=== PATIENT | female | born 1940 | race Caucasian/White ===

== ENCOUNTER → 2016-09-09 | Outpatient (CLI) | payer OTHER ==
[~2016-09-09] MED LIST: ASPEC325 PO; ATOR-24 PO; CALC625T35 PO; CPR500 PO; LOSA1TAB PO; METO50TA7 PO; MULT-506 PO
[2016-09-09 13:38] LABS: BASO % 0.6 %; BASO ABS # 0.04 K/uL (0-0.2); COMPLETE YES; EOS % 3.2 %; HEMATOCRIT 42.2 % (37-47); IG% 0.2 %; LYMPH % 30.7 %; LYMPH ABS # 2.01 K/uL (1.2-3.4); MEAN CELL VOLUME 90.2 fL (80-100); MEAN CORPUSCULAR HEMOGLOBIN 29.1 pg (25-34); MEAN CORPUSCULAR HGB CONC 32.2 g/dl (32-36); MEAN PLATELET VOLUME 12.4 fL (7.4-10.4); MONO % 9.6 %; NEUT % 55.7 %; PLATELET COUNT 222 K/uL (130-400); RED BLOOD COUNT 4.68 M/uL (4.2-5.4); WHITE BLOOD COUNT 6.55 K/uL (4.8-10.8)
[2016-09-09 15:04] LABS: ALT/SGPT 39 U/L (12-78); AST/SGOT 21 U/L (15-37); BLOOD UREA NITROGEN 17 mg/dl (7-18); BUN/CREATININE RATIO 19.1 (10-20); CALCIUM 9.5 mg/dl (8.5-10.1); CARBON DIOXIDE 29 mmol/L (21-32); CHLORIDE 107 mmol/L (98-107); CREATININE 0.87 mg/dl (0.60-1.20); GLUCOSE 104 mg/dl (70-99); POTASSIUM 4.5 mmol/L (3.5-5.1); SODIUM 144 mmol/L (136-145)
[2016-09-09 15:06] LABS: ALB/GLOB RATIO 1.3 (0.9-2); ALKALINE PHOSPHATASE 50 U/L (45-117); CHOLESTEROL 204 mg/dl (0-200); CHOLESTEROL/HDL RATIO 3.7; HDL CHOLESTEROL 55 mg/dl; TRIGLYCERIDES 197 mg/dl (0-150); VERY LOW DENSITY LIPOPROT CALC 39 mg/dl
== END | disposition home or self-care (01) ==
LOC: C.LABSPEC 12:48
PROVIDERS: ATTEND Internal Medicine
DX: E78.5 Hyperlipidemia, unspecified (principal); I25.10 Atherosclerotic heart disease of native coronary artery without angina pectoris; M35.3 Polymyalgia rheumatica

== ENCOUNTER → 2016-10-01 | Day surgery (SDC) | payer OTHER ==
[~2016-10-01] MED LIST changes: +PERFLUTREN LIPID MICROSPHERE (DEFINITY) IV ONE
--- NOTE | 2016-10-01 10:57 | EXERCISE STRESS ECHO ---
*NOTICE TO RECEIVING [employer] This information is strictly Confidential and protected under [place] law. [place] law prohibits you from making any further disclosure of this information unless further disclosure is expressly permitted by the written consent of the person to whom it pertains or is authorized by law. A general authorization for the release of medical or other information is not sufficient for this purpose. Hospital accepts no responsibility if the information is made available to any other person, INCLUDING THE PATIENT. Interpretation Summary * Name: LILIA CORNEJO Study Date: 10/01/2016 08:47 AM BP: 146/78 mmHg * Patient Location: [facility] HR: 50 * : 1940 (M/d/yyyy) Gender: Female Height: 61 in * Age: 76 yrs Ethnicity: [place] Weight: 157 lb * Ordering Physician: José Manuel Chambers * Referring Physician: José Manuel Chambers * Performed By: Sujatha Dupree RDCS * * Reason For Study: SOB * BSA: 1.7 m2 * -- Conclusions -- * Stress Echo: * 1. Abnormal stress echo at 89% MPHR, suggesting mid to distal LAD ischemia, and potentially a small area of RCA ischemia. * 2. Abnormal exercise ECG at 89% MPHR. * 3. No arrhythmia. * 4. Appropriate blood pressure response to exercise. * 5. Exercise terminated due to dyspnea. No chest pain. * 6. Poor exercise tolerance. * 7. Technically difficult study, enhanced with IV Definity. * 8. Dr. Gottlieb was personally contacted via telephone. He asked that we proceed with cardiac evaluation and cardiac catheterization. * Echo: * 1. Normal left ventricular size and systolic function. EF 60-65 %. No regional wall motion abnormalities. No left ventricular hypertrophy. Type 2 diastolic dysfunction. * 2. Mild mitral regurgitation. * 3. Normal estimated right ventricular systolic pressure; 22 mmHg. Procedure Details * ECHOEX, CPT #33906 * A contrast injection of Definity was performed to improve assessment of LV function. * Contrast was injected into an intravenous site in the right arm. * One vial of Definity ultrasound contrast was diluted in normal saline to a total volume of 10 ml. A total of '4' ml of solution was administered during imaging. * Lot # [id number] of Definity utilized for procedure. * Expiration date NOV 08. * The attending nurse who injected the contrast agent was NEPTALI CALDERON RN. Left Ventricle * The left ventricle is normal in size. * There is normal left ventricular wall thickness. * Ejection Fraction = 60-65%. * Following exercise, the mid to distal anterior does not appear to augment appropriately, and appears hypokinetic. The inferior base appears hypokinetic following exercise. * The left ventricular wall motion is normal at rest. * The left ventricular ejection fraction increases normally with stress. The left ventricular end-systolic cavity size reduces post-stress (normal response). The left ventricular wall motion with stress is normal. Right Ventricle * The right ventricle is normal in size and function. * The right ventricular systolic function is normal as assessed by tricuspid annular plane systolic excursion (TAPSE) (normal >1.5 cm). Atria * The left atrial size is normal. * Right atrial size is normal. * There is no evidence of atrial septal defect, but resolution does not allow assessment for a patent foramen ovale. Mitral Valve * The mitral valve leaflets appear normal. There is no evidence of stenosis, fluttering, or prolapse. * There is mild mitral regurgitation. Tricuspid Valve * The tricuspid valve is not well visualized, but is grossly normal. * There is no tricuspid stenosis. * There is trace tricuspid regurgitation. Aortic Valve * The aortic valve is trileaflet. * No hemodynamically significant valvular aortic stenosis. * No aortic regurgitation is present. Pulmonic Valve * The pulmonary valve is inadequately visualized, but the Doppler data is adequate for interpretation. * There is no significant pulmonary regurgitation. Great Vessels * The aortic root is normal size. * Ascending aorta of normal dimension * Normal IVC size and inspiratory collapse. Pericardium * There is no pericardial effusion. Stress Parameters * Sinus bradycardia at 51 bpm. * 0.5 - [address] depression in II, III, aVF that was nearly back to baseline by 9 minutes into recovery. * Rest heart rate was '50' BPM. * Rest blood pressure was '146/78' * Maximum heart rate achieved was 131 bpm. * Maximum heart rate was 89 % of maximum age-predicted heart rate. * Maximum blood pressure was '180/90' * Total exercise time was '4:04' * Maximum exercise MET level achieved was '5.80' METS * Maximum treadmill speed was '2.50' miles per hour. * Maximum treadmill elevation was '12.00'% grade. * Exercise was terminated due to 'significant dyspnea' * The patient exhibited dyspnea during exercise. Left Ventricular Diastolic Function * Diastolic dysfunction, Grade II (pseudonormalization pattern). MMode 2D Measurements and Calculations IVSd 1.1 cm IVSs 1.5 cm LVIDd 3.7 cm LVIDs 2.5 cm LVPWd 1.0 cm LVPWs 1.3 cm IVS/LVPW 1.1 FS 33.3 % EDV(Teich) 59.7 ml ESV(Teich) 22.2 ml EF(Teich) 62.8 % EDV(cubed) 52.4 ml ESV(cubed) 15.5 ml EF(cubed) 70.3 % % IVS thick 35.0 % % LVPW thick 30.8 % LV mass(C)d 123.4 grams LV mass(C)dI 72.4 grams/m\S\2 LV mass(C)s 111.4 grams LV mass(C)sI 65.3 grams/m\S\2 SV(Teich) 37.5 ml SI(Teich) 22.0 ml/m\S\2 SV(cubed) 36.9 ml SI(cubed) 21.6 ml/m\S\2 Ao root diam 2.8 cm Ao root area 6.3 cm\S\2 asc Aorta Diam 2.8 cm LVAd ap4 28.5 cm\S\2 LVLd ap4 7.7 cm EDV(MOD-sp4) 88.0 ml EDV(sp4-el) 90.3 ml LVAs ap4 15.9 cm\S\2 LVLs ap4 6.5 cm ESV(MOD-sp4) 34.3 ml ESV(sp4-el) 32.8 ml EF(MOD-sp4) 61.0 % EF(sp4-el) 63.7 % LVAd ap2 27.1 cm\S\2 LVLd ap2 7.9 cm EDV(MOD-sp2) 80.7 ml EDV(sp2-el) 79.1 ml LVAs ap2 15.2 cm\S\2 LVLs ap2 6.4 cm ESV(MOD-sp2) 31.9 ml ESV(sp2-el) 30.5 ml EF(MOD-sp2) 60.4 % EF(sp2-el) 61.4 % LVLd %diff 2.7 % EDV(MOD-bp) 84.4 ml LVLs %diff -1.22 % ESV(MOD-bp) 33.3 ml EF(MOD-bp) 60.6 % SV(MOD-sp4) 53.7 ml SI(MOD-sp4) 31.5 ml/m\S\2 SV(MOD-sp2) 48.8 ml SI(MOD-sp2) 28.6 ml/m\S\2 SV(MOD-bp) 51.2 ml SI(MOD-bp) 30.0 ml/m\S\2 SV(sp4-el) 57.5 ml SI(sp4-el) 33.7 ml/m\S\2 SV(sp2-el) 48.6 ml SI(sp2-el) 28.5 ml/m\S\2 Doppler Measurements and Calculations MV E max olga 97.5 cm/sec MV A max olga 70.3 cm/sec MV E/A 1.4 MV dec time 0.20 sec Ao V2 max 133.6 cm/sec Ao max PG 7.1 mmHg Ao max PG (full) 3.1 mmHg LV V1 max PG 4.0 mmHg LV V1 max 99.9 cm/sec TR max olga 220.4 cm/sec RVSP(TR) 22.4 mmHg RAP systole 3.0 mmHg
--- NOTE | 2016-10-01 11:07 | Cardiology Consultation ---
Cardiology Consultation Date of Consultation: Oct 01, 2016. Requesting Physician: Dr. Gottlieb Attending Physician: Dr. Gottlieb Reason for Consultation: abnormal stress echo and dyspnea with exertion Pt evaluation today including: conversation w/ patient, conversation w/ family , physical exam, chart review, lab review, review of studies, review of inpatient medication list, conversation w/ attending History of Present Illness Mrs. Cruz is a very pleasant 76-year-old female with a history significant for CAD status post LAD stent in 2011. She also has hypertension and dyslipidemia. She presented to [facility] on 10/01/2016 for an outpatient exercise stress echo as ordered by her PCP, Dr. Gottlieb. She has had progressively worsening dyspnea with exertion for the past 1-2 months. Climbing hills, climbing stairs, and even performing some of her ADLs have caused dyspnea. She denies any chest discomfort/angina. Her symptoms have progressively worsened over time. She denies shortness of breath at rest. She had symptoms prior to her trip to [place]. In 2011, while in [place], she had a drug-eluting stent placed within her LAD. Her symptoms at that time included chest discomfort described as an elephant on her chest, left arm pain, jaw pain, and dyspnea with exertion. Her symptoms resolved following stent placement. She denies melena, hematochezia, hematuria, palpitations, syncope, near-syncope , orthopnea, edema, or chest pain. Review of systems: As above. Review of systems otherwise unremarkable. Past Medical/Surgical History 1. CAD status post drug-eluting stent within the LAD April 2011. 2. Hypertension 3. Dyslipidemia 4. Polymyalgia rheumatica Family History Father at the age of 53 with myocardial infarction. Mother had CAD. Brother has CAD. Social History Quit smoking many years ago. She is and lives with her . Her is present at the bedside. Allergies Coded Allergies: Erythromycin (Unverified Allergy, Unknown, ., 11/24/13) Oxycodone (Unverified Allergy, Unknown, ., 11/24/13) Penicillins (Unverified Allergy, Unknown, ., 11/24/13) Sulfa Drugs (Unverified Allergy, Unknown, ., 11/24/13) Medications Medications include aspirin 325 mg daily, Lipitor 80 mg daily, metoprolol succinate 50 mg daily, vitamin, fiber. Physical Exam Resting heart rate 69 bpm. Blood pressure 146/86 mmHg. Heart rate on ECG 51 bpm. Gen.: No acute distress. Alert and oriented. HEENT: Anicteric sclera. Neck: No JVD. No bruits. Normal carotid upstrokes bilaterally. Cardiac: PMI was nonpalpable . No ventricular heave. Regular rate and rhythm. Normal S1-S2. No murmurs, rubs, or gallops. Pulmonary: Clear to auscultation bilaterally without wheezes, rales, or rhonchi. Abdomen: Soft, nontender, nondistended, with normoactive bowel sounds. No bruits noted. Extremities: 2+ radial pulses bilaterally. 2+ posterior tibialis pulses bilaterally. No edema or cyanosis. Psychiatric: Affect appears appropriate. Data Laboratory Results: Labs 09/09/2016: WBC 6.55; hemoglobin 13.6; platelets 222; sodium 144; potassium 4.5; BUN 17; creatinine 0.87; AST 21; ALT 39 Stress echo imaging personally reviewed suggesting mid to distal LAD ischemia, and potentially small area of RCA ischemia. Assessment & Plan ASSESSMENT/PLAN: 1. Abnormal stress echo with dyspnea and exertion: Symptoms concerning for ischemic heart disease given her abnormal stress echo imaging and progressively worsening dyspnea with exertion. Dr. Gottlieb was personally contacted. Cardiac catheterization recommended. Risks and benefits were discussed with her and her in detail. They are made aware that CT surgery is not available at this facility. She would like to proceed with cardiac catheterization today if possible. This is being arranged for her. She had recent laboratory data done. Currently, she is asymptomatic without angina. 2. CAD status post LAD PCI: Continue aspirin daily indefinitely. Continue beta-patrick and high-intensity statin therapy. Cardiac catheterization today as noted above. 3. Hypertension: She is not significantly hypertensive, although was mildly hypertensive at rest today. Continue current regimen for now. If she remains hypertensive, can further titrate medications. 4. Disposition: Cardiac catheterization being planned for later today when the cardiac catheterization lab was available. Dr. Aquino and Dr. Gottlieb were made aware of abnormal stress echo findings and plan going forward. Highly complex medical issues.
== END | disposition home or self-care (01) ==
LOC: C.CPL 08:13 → EDSTATUS 08:45 → C.CATH 10:38
PROVIDERS: ATTEND Internal Medicine Cardiovascular Disease
DX: R06.00 Dyspnea, unspecified (principal); I25.10 Atherosclerotic heart disease of native coronary artery without angina pectoris; I10 Essential (primary) hypertension; E78.5 Hyperlipidemia, unspecified; M35.3 Polymyalgia rheumatica; Z82.49 Family history of ischemic heart disease and other diseases of the circulatory system; Z87.891 Personal history of nicotine dependence; Z79.82 Long term (current) use of aspirin; Z79.899 Other long term (current) drug therapy

== ENCOUNTER → 2016-10-03 | Day surgery (SDC) | payer OTHER ==
[~2016-10-03] VITALS: Ht 154.9 cm; Wt 72.0 kg
[~2016-10-03] MED LIST changes: +ACETAMINOPHEN 325 MG TAB PO PRN; +FENTANYL CITRATE INJ 50 MCG/1 ML 2 ML VIAL ONE; +HEPARIN SOD (PORCINE) 1000 UNIT/ML 10 ML VIAL ONE; +MIDAZOLAM HCL 1 MG/ML 2ML VIAL ONE; +NITROGLYCERIN/D5W 100MCG/ML 20ML SYR ONE; +NiCARDipine HCL INJ 2.5 MG/ML 10 ML AMP ONE; +ONDANSETRON INJ 2 MG/ML 2 ML VIAL IV PRN; -PERFLUTREN LIPID MICROSPHERE (DEFINITY) IV ONE; +SODIUM CHLORIDE 0.9% 1000ML 1,000 ML IV SCH; +SODIUM CHLORIDE 0.9% 1000ML 250 ML IV PRN
[2016-10-03 07:11] VITALS: Ht 154.9 cm; Wt 72.0 kg
[2016-10-03 07:12] VITALS: BP 186/78; PULSE 60; TEMP 36.5; O2SAT 95
--- NOTE | 2016-10-03 07:51 | History & Physical Bridge Note ---
H&P Re-Evaluation Bridge Note: I have examined the patient, reviewed the History & Physical and in the interval since the performance of the History & Physical I have noted the following changes of clinical significance: No changes noted
--- NOTE | 2016-10-03 07:52 | Procedure Note ---
Pre-Mod Sedation Assessment General Date of Moderate Sedation: Oct 03, 2016. Vital Signs: Vital Signs Past 12 Hours Date Time Temp Pulse Resp B/P (MAP) Pulse Ox O2 Delivery O2 Flow Rate FiO2 10/03/16 07:12 36.5 60 16 186/78 95 Room Air Review Cardiovascular: regular rate, rhythm, no murmur Abdomen: soft Lungs: lungs clear Pre-Sedation Airway Assessment Oral Cavity: WNL Short Thick Neck: No Hx of Sleep Apnea: No Smoking Status: Never Smoker Procedure Planning Contraindications-for Mod Sed: None Yes Notes The planned sedation has been discussed with the patient and consent obtained. I have identified the patient, determined the appropriateness of sedation and have assessed the patient immediately prior to the procedure. All medicine(s) and interventions are by my order.
--- NOTE | 2016-10-03 08:50 | Procedure Note ---
Post-Mod Sedation Assessment General Date of Moderate Sedation Oct 03, 2016. Vital Signs: Vital Signs Past 12 Hours Date Time Temp Pulse Resp B/P (MAP) Pulse Ox O2 Delivery O2 Flow Rate FiO2 10/03/16 08:30 56 16 137/57 (83) 96 Room Air 10/03/16 08:22 52 15 124/64 (84) 95 Room Air 10/03/16 07:12 36.5 60 16 186/78 95 Room Air Review - Discharge Criteria Vital Signs Stable: Yes Alert/Oriented/Conversant: Yes Returned to Baseline Mental St: Yes Nausea Absent/Minimal: Yes Pain/Discomfort/Absent/Minimal: Yes Normal/Baseline Respirations: Yes Active Bleeding?: No
--- NOTE | 2016-10-03 09:11 | Cardiac Catheterization ---
Procedure Note Procedure Date Oct 03, 2016. Pre-Procedure Diagnosis Positive Stress Test AUC Score 9 Post-Procedure Diagnosis Mild CAD, Normal Intracardiac Pressures Procedure(s) Performed Coronary Angiography, Left Heart Cath Supervisor In Circuit Testing Dr. Hernandes Food And Beverage Attendant(s) Filipe Estimated Blood Loss < 20 ml Medication(s) Fentanyl, Heparin, Nicardipine, Versed, Lidocaine 1% Summary of Findings Coronary angiography: 1. Left main coronary artery: No significant CAD noted angiographically. 2. Left anterior descending: The LAD is a medium caliber vessel that extends to the apex. Proximal LAD stent appears patent. There is a 30% stenosis in the mid LAD just distal to the stent. Large D1, small D2, small D3 vessels without obstructive CAD. 3. Circumflex: Medium caliber circumflex with medium caliber OM1. No angiographic evidence of CAD within the circumflex system. 4. Right coronary artery: The RCA is medium to large in caliber and is the dominant vessel. Large PDA. Small to medium caliber PL. No angiographic evidence of CAD within the RCA system. Left heart catheterization: 1. Left ventriculography was not performed as there was an echo done on 2016. 2. No significant aortic stenosis. 3. Normal LVEDP. LVEDP 10 mmHg. Sedation start: 8:02 a.m. Sedation end: 8:22 a.m. Procedural notes: 1. Coronary angiography was performed via the right radial artery without known complication. Impression: 1. Mild nonobstructive CAD within the mid LAD. 2. Patent proximal LAD stent. 3. No significant aortic stenosis. 4. Normal LVEDP. Plan: 1.Continue to follow with Dr. Aquino in Cardiology. 2. Continue aspirin therapy indefinitely due to prior PCI. Hemodynamics Rest Ao: 151/61 Final Ao: 155/64 LV: 144/6. LVEDP 10 mmHg Recommendations Medical therapy and/or Counseling Specimens None Radiation Exposure (mGy) 670 mGy. Fluoro time 2.5 min Contrast (mls) 30 ml Visipaque Procedural Complication(s) None Disposition Adjunct Sociology Professor Holding/Recovery ACC Data Cardiac Status Clinical evaluation leading to the procedure CAD Presntation: Positive Stress Test Anginal Classification: No symptoms Heart Failure: No Cardiogenic Shock w/in 24Hrs: No Cardiac Arrest w/in 24Hrs: No Imaging studies past 6 months: No Stress studies past 6 months: Yes Standard Exercise Stress Test: Yes - Negative Stress Echocardiogram: Yes - Positive, Risk/Extent of Ischemia (Intermediate) Stress Testing w/SPECT MPI: No Cardiac CTA: No Coronary Anatomy Dominant: Right Left Main (% Stenosis): Normal LAD (% Stenosis): Mid (30%) D1 (% Stenosis): Normal D2 (% Stenosis): Normal D3 (% Stenosis): Normal Circumflex (% Stenosis): Normal OM1 (% Stenosis): Normal RCA (% Stenosis): Normal R PDA (% Stenosis): Normal R PL1 (% Stenosis): Normal Left Ventricular Angiography EF (%): n/a Diagnostic Physician's Name: Keo Hernandes MD Status: Elective Closure Device Percutaneous Entry Location: Radial Closure Device: Radial Band Recommendations: Medical therapy and/or Counseling
--- NOTE | 2016-10-03 10:29 | Discharge Instructions ---
Discharge Instructions Date of Service Oct 03, 2016. Visit Reason for Visit: Cardiac catheterization Discharge Discharge Diagnosis / Problem: 1. Non-obstructive coronary artery disease. 2. Hypertension Discharge Goals Goal(s): Diagnostic testing Activity Recommendations Activity Limitations: per Instructions/Follow-up section Anesthesia . Post Anesthesia Instructions: If you have had General Anesthesia or IV Sedation: * Do not drive today. * Resume driving when surgeon permits. * Do not make important decisions or sign legal documents today. * Call surgeon for: 1. Temperature elevations greater than 101 degrees F. 2. Uncontrollable pain. 3. Excessive bleeding. 4. Persistent nausea and vomiting. 5. Medication intolerance (nausea, vomiting or rash). * For nausea and vomiting use only clear liquids such as: tea, soda, bouillon until nausea subsides, then gradually increase diet as tolerated. * If you have any concerns or questions, call your surgeon's office. If physician is unavailable and it is an emergency, call 911 or go to the nearest emergency room. . Instructions / Follow-Up Instructions / Follow-Up ACTIVITY RECOMMENDATIONS: Excess manipulation of the wrist should be avoided for the next 24-48 hours. * No lifting over 2 pounds (approximately a 1/2 gallon of milk) with the utilized arm for 24 hours. * No strenuous activity such as bowling or tennis for 3 days. * Keep the site of the procedure covered with a bandage for 24 hours. *You may shower the day after the procedure. Do not take a tub bath or submerge the puncture site in water for the next 3 days. *Do not operate any motorized equipment for 3 days. SPECIAL CARE INSTRUCTIONS: The site may be slightly bruised and sore following your procedure. Should any of the following occur, contact the Dr. who performed your procedure. 1. Redness/inflammation, swelling, chills, or fever, or colored drainage at procedure site within 3-7 days after your procedure. 2. Coldness, discoloration, ongoing numbness, severe pain, or swelling. Expect mild tingling of hand and tenderness at the puncture site for up to three days. If this persists beyond three days, or other symptoms develop, notify the Dr. who performed your procedure. BLEEDING: If the procedure site on your wrist begins to bleed, do not panic 1. Place 1 or 2 fingers firmly just slightly above the insertion site to stop the bleeding. You may be able to feel your pulse as you hold pressure. 2. Lift your finger after 5 minutes to see if the bleeding has stopped. 3. Once the bleeding has stopped, gently wipe the wrist area clean with a bandage. * If the bleeding from your wrist does not stop after 10 minutes, or if there is a large amount of bleeding or spurting, call 911 (do not drive yourself to the hospital). SKIN IRRITATION: * You may experience some redness and/or swelling in the area where radiation was administered. If any skin irritation occurs, please contact your family physician. FOLLOW UP VISIT: Keep any scheduled doctor appointments. Diet Recommendations Recommended Home Diet: low cholesterol Procedures Procedures Performed: 1. coronary angiography and left heart catheterization Pending Studies Studies pending at discharge: yes List of pending studies: Have labs drawn in 5-7 days. Order is placed electronically and can be done at any [facility] lab. Medical Emergencies . Who to Call and When: Medical Emergencies: If at any time you feel your situation is an emergency, please call 911 immediately. . Non-Emergent Contact Non-Emergency issues call your: Primary Care Provider (Dr. Gottlieb), Geophysical Drafter (Dr. Aquino) . . "Provider Documentation" section prepared by Keo Art. .
[2016-10-03 10:45] VITALS: BP 147/52; PULSE 63; O2SAT 96
--- NOTE | 2016-10-03 12:34 | Anesthesia Progress Nt - [facility] ---
Anesthesia Post Op Note Date & Time Oct 03, 2016 at 12:34 Vital Signs Pain Intensity: 0 Vital Signs Past 12 Hours Date Time Temp Pulse Resp B/P (MAP) Pulse Ox O2 Delivery O2 Flow Rate FiO2 10/03/16 10:45 63 16 147/52 (83) 96 Room Air 10/03/16 10:30 55 16 129/51 (77) 95 Room Air 10/03/16 10:00 57 16 179/76 (110) 96 Room Air 10/03/16 09:45 59 16 157/76 (103) 96 Room Air 10/03/16 09:30 52 16 142/63 (89) 96 Room Air 10/03/16 09:15 50 16 172/72 (105) 96 Room Air 10/03/16 09:00 52 16 147/67 (93) 96 Room Air 10/03/16 08:45 51 16 140/59 (86) 96 Room Air 10/03/16 08:30 56 16 137/57 (83) 96 Room Air 10/03/16 08:22 52 15 124/64 (84) 95 Room Air 10/03/16 07:12 36.5 60 16 186/78 95 Room Air Notes Mental Status: alert / awake / arousable, participated in evaluation Pt Amnestic to Procedure: Yes Nausea / Vomiting: adequately controlled Pain: adequately controlled Airway Patency, RR, SpO2: stable & adequate BP & HR: stable & adequate Hydration State: stable & adequate Anesthetic Complications: no major complications apparent
== END | disposition home or self-care (01) ==
LOC: C.CATH 06:57
PROVIDERS: ATTEND Internal Medicine Cardiovascular Disease
DX: R06.00 Dyspnea, unspecified (principal); R93.1 Abnormal findings on diagnostic imaging of heart and coronary circulation; I25.10 Atherosclerotic heart disease of native coronary artery without angina pectoris; I10 Essential (primary) hypertension; E78.5 Hyperlipidemia, unspecified; M35.3 Polymyalgia rheumatica; Z79.82 Long term (current) use of aspirin; Z82.49 Family history of ischemic heart disease and other diseases of the circulatory system

== ENCOUNTER → 2016-10-08 | Outpatient (CLI) | payer OTHER ==
[~2016-10-08] MED LIST changes: -ACETAMINOPHEN 325 MG TAB PO PRN; -CPR500 PO; -FENTANYL CITRATE INJ 50 MCG/1 ML 2 ML VIAL ONE; -HEPARIN SOD (PORCINE) 1000 UNIT/ML 10 ML VIAL ONE; -MIDAZOLAM HCL 1 MG/ML 2ML VIAL ONE; -NITROGLYCERIN/D5W 100MCG/ML 20ML SYR ONE; -NiCARDipine HCL INJ 2.5 MG/ML 10 ML AMP ONE; -ONDANSETRON INJ 2 MG/ML 2 ML VIAL IV PRN; -SODIUM CHLORIDE 0.9% 1000ML 1,000 ML IV SCH; -SODIUM CHLORIDE 0.9% 1000ML 250 ML IV PRN
[2016-10-08 12:32] LABS: BLOOD UREA NITROGEN 16 mg/dl (7-18); BUN/CREATININE RATIO 17.5 (10-20); CALCIUM 9.3 mg/dl (8.5-10.1); CARBON DIOXIDE 30 mmol/L (21-32); CHLORIDE 106 mmol/L (98-107); CREATININE 0.89 mg/dl (0.60-1.20); GLUCOSE 89 mg/dl (70-99); POTASSIUM 4.8 mmol/L (3.5-5.1); SODIUM 140 mmol/L (136-145)
== END | disposition home or self-care (01) ==
LOC: C.LAB1850 09:58
PROVIDERS: ATTEND Internal Medicine Cardiovascular Disease
DX: I25.10 Atherosclerotic heart disease of native coronary artery without angina pectoris (principal); I10 Essential (primary) hypertension

== ENCOUNTER → 2016-10-17 | Outpatient (CLI) | payer OTHER ==
--- NOTE | 2016-10-17 09:53 | DIAGNOSTIC IMAGING REPORT ---
CHEST 2 VIEWS ROUTINE CLINICAL HISTORY: 76 years-old Female presenting with DYSPNEA. TECHNIQUE: PA and lateral views of the chest were obtained. COMPARISON: 01/31/2016. FINDINGS: Atherosclerosis of aortic arch. Cardiac silhouette normal. Calcified granuloma noted at the left lung base. Lungs and pleural spaces otherwise clear. Osseous structures and upper abdomen normal. IMPRESSION: 1. No acute cardiopulmonary disease. Electronically signed by: Darius Vila M.D. 10/17/2016 9:52 AM Dictated Date/Time: 10/17/2016 9:50 AM
--- NOTE | 2016-10-17 09:55 | DIAGNOSTIC IMAGING REPORT ---
LEFT HIP UNILATERAL 2 VIEWS CLINICAL HISTORY: 76 years-old Female presenting with pain since February in the left hip, "pulled" left groin. TECHNIQUE: Frontal and frog-leg lateral views of the left hip were obtained. COMPARISON: Plain radiographs of the abdomen from 2009. FINDINGS: Left hip joint congruent. No acute fracture or subluxation. Osteophytosis noted. No significant joint space loss or radiographic evidence of subchondral sclerosis. Multiple phleboliths noted in the pelvis. IMPRESSION: No acute osseous injury. Mild degenerative changes of the left hip joint. Electronically signed by: Darius Vila M.D. 10/17/2016 9:54 AM Dictated Date/Time: 10/17/2016 9:52 AM
== END | disposition home or self-care (01) ==
LOC: C.RAD 09:20
PROVIDERS: ATTEND Internal Medicine
DX: R06.00 Dyspnea, unspecified (principal); M25.552 Pain in left hip; R10.30 Lower abdominal pain, unspecified

== ENCOUNTER → 2016-10-17 | Outpatient (CLI) | payer OTHER ==
--- NOTE | 2016-10-17 13:25 | MAMMOGRAPHY REPORT ---
BILATERAL DIGITAL SCREENING MAMMOGRAM WITH CAD: 10/17/2016 CLINICAL HISTORY: Routine screening. Patient has no complaints. TECHNIQUE: Bilateral CC and MLO views were obtained. Current study was also evaluated with a Compute r Aided Detection (CAD) system. COMPARISON: Comparison is made to exams dated: 10/16/2015 mammogram, 10/13/2014 mammogram, 10/12/2013 m ammogram, 10/09/2012 mammogram, 09/30/2011 mammogram, and 09/27/2010 mammogram - [facility]. BREAST COMPOSITION: There are scattered areas of fibroglandular density in both breasts. FINDINGS: There are a few benign-appearing round and punctate calcifications in the left breast. No suspicious mass, architectural distortion or cluster of suspicious microcalcifications is seen. IMPRESSION: ACR BI-RADS CATEGORY 1: NEGATIVE There is no mammographic evidence of malignancy. A 1 year screening mammogram is recommended. The pa tient will receive written notification of the results. Approximately 10% of breast cancers are not detected with mammography. A negative mammographic report should not delay biopsy if a clinically suggestive mass is present. Mariam Messer M.D. ay/:10/17/2016 09:35:41 Hospital Cna: Isela KAUR(R)(M), [facility] letter sent: Normal 1/2 BI-RADS Code: ACR BI-RADS Category 1: Negative
== END | disposition home or self-care (01) ==
LOC: C.MAMM 08:44
PROVIDERS: ATTEND Internal Medicine
DX: Z12.31 Encounter for screening mammogram for malignant neoplasm of breast (principal); R06.00 Dyspnea, unspecified; M25.552 Pain in left hip; R10.30 Lower abdominal pain, unspecified

== ENCOUNTER → 2016-10-29 | Outpatient (CLI) | payer OTHER ==
--- NOTE | 2016-11-04 09:52 | PULMONARY FUNCTION TEST ---
CLINICAL DATA: A 76-year-old female with a height of 61 inches and a weight of [address] Gottlieb for evaluation of dyspnea. Spirometry pre- and post-bronchodilator, lung volumes, and diffusion capacity were performed. FINDINGS: Prebronchodilator spirometry demonstrates mild obstructive small airways disease. FVC was 122% of predicted. FEV1 was 102% of predicted. [id number] was 53% of predicted. FEV1/FVC ratio was 79% of predicted. There was improvement in [id number] after inhaled bronchodilator. FVC remained stable. FEV1 improved by 75%, and VCI10-93 improved 37% to 72% of predicted after bronchodilator. Lung volumes showed a mild reduction in residual volume. Diffusion capacity was minimally reduced at 77% of predicted. IMPRESSION: Mild obstructive small airways disease with improvement in [id number] after inhaled bronchodilator with a mild reduction in residual volume and mild reduction in diffusion capacity. MTDD
== END | disposition home or self-care (01) ==
LOC: C.RC 11:20
PROVIDERS: ATTEND Internal Medicine
DX: R06.00 Dyspnea, unspecified (principal)

== ENCOUNTER 2017-02-14 12:41 | Emergency (ER) | payer OTHER ==
[~2017-02-14] VITALS: Ht 154.9 cm; Wt 73.6 kg
[2017-02-14 12:58] VITALS: TEMP 36.5; Ht 154.9 cm; Wt 73.6 kg
[2017-02-14] MEDS ORDERED: DIAZEPAM INJ 5 MG/ML 2 ML CARP IV STA (13:03)
[2017-02-14] MEDS ORDERED: METOCLOPRAMIDE HCL INJ 5 MG/ML 2 ML VIAL IV STA (13:03)
[2017-02-14] MEDS ORDERED: GLUCAGON INJ 1 MG in SYRINGE 0 ML IV STA (13:03)
[2017-02-14] MEDS ORDERED: NITROGLYCERIN OINT 2% 1GM PACKET EXT STA (13:03)
[2017-02-14 13:05] VITALS: O2SAT 96
[2017-02-14] MEDS ORDERED: NITROGLYCERIN OINT 2% 1GM PACKET ONE (13:14)
--- NOTE | 2017-02-14 13:15 | EMERGENCY ROOM VISIT NOTE ---
History Report prepared by [place]: Abraham Gillespie Under the Supervision of: Dr. Roberto Hood M.D. First contact with patient: 13:03 Chief Complaint: FOOD BOLUS Stated Complaint: TURKEY STUCK IN THROAT Nursing Triage Summary: Pt states she was eating turkey an hour ago and it's stuck in her throat. Can't swallow water because it comes right back up. History of Present Illness The patient is a 76 year old female who presents to the Emergency Room with complaints of a constant food bolus that began prior to arrival. The patient states she has had a food bolus before, but it has never been this bad. She reports she ate a piece of turkey this morning. The patient notes she has never had to have an endoscopy to remove the bolus. The patient states she has a history of an NH and takes Metoprolol and an aspirin daily. She denies any other complaint. Source of History: patient Onset: prior to arrival Position: throat Quality: other (food bolus) Timing: constant Note: Denies any other complaint. Review of Systems See HPI for pertinent positives & negatives. A total of 10 systems reviewed and were otherwise negative. Past Medical & Surgical Medical Problems: (1) Dyslipidemia (2) HTN (hypertension) (3) Myocardial infarction (4) Polymyalgia rheumatica Family History Heart disease Hypertension Social History Smoking Status: Former Smoker Marital Status: Housing Status: lives with significant other Current/Historical Medications Scheduled Aspirin Enteric Coated (Ecotrin Or Generic *), 325 MG PO DAILY Atorvastatin (Lipitor), 80 MG PO DAILY Calcium Polycarbophil (Fiber), 1 TAB PO DAILY Losartan Potassium (Cozaar), 1 TAB PO DAILY Metoprolol Succ (Toprol Xl) (Toprol-Xl), 50 MG PO DAILY Multivitamin (Multivitamin), 1 TAB PO DAILY Allergies Coded Allergies: Erythromycin (Verified Allergy, Unknown, ., 10/03/16) Oxycodone (Verified Allergy, Unknown, ., 10/03/16) Penicillins (Verified Allergy, Unknown, ., 10/03/16) Sulfa Antibiotics (Verified Allergy, Unknown, ., 10/03/16) Physical Exam Vital Signs Date Time Temp Pulse Resp B/P (MAP) Pulse Ox O2 Delivery O2 Flow Rate FiO2 02/14/17 14:00 61 20 150/80 97 02/14/17 13:48 64 20 134/77 97 Room Air 02/14/17 13:05 96 Room Air 02/14/17 13:02 90 Room Air 90 02/14/17 12:58 36.5 80 20 167/100 90 Room Air Physical Exam GENERAL: Patient is a healthy-appearing well-nourished 76 year old female. Actively spitting saliva into a bag. Appears uncomfortable. HEAD: Normocephalic atraumatic EYES: Ocular movements intact pupils equal and react to light OROPHARYNX mucous membranes are moist no exudates present no erythema or edema present NECK: Supple no nuchal rigidity CHEST: Good equal expansion LUNGS: Clear and equal to auscultation CARDIAC: Normal S1 and S2 ABDOMEN: Soft nontender no guarding BACK: No CVA tenderness EXTREMITIES: No pain upon palpation normal muscle strength in all groups no clubbing cyanosis or edema NEURO: Patient is following commands and answering questions appropriately. Alert and oriented x3 Cranial Nerves 2-12 grossly intact Medical Decision & Procedures ER Provider Diagnostic Interpretation: X-ray results as stated below per interpretation by me and the radiologist: CHEST ONE VIEW PORTABLE CLINICAL HISTORY: CHEST PAIN dyspnea COMPARISON STUDY: 10/17/2016 FINDINGS: The bones soft tissues and hemidiaphragms are normal. The cardiomediastinal silhouette is normal. The lungs are clear. The pulmonary vasculature is normal. IMPRESSION: Negative chest. The above report was generated using voice recognition software. It may contain grammatical, syntax or spelling errors. Electronically signed by: Jose Ramon Barba M.D. 02/14/2017 1:36 PM Dictated Date/Time: 02/14/2017 1:35 PM Laboratory Results 02/14/17 13:05 Red Blood Count 4.48, Mean Corpuscular Volume 90.8, Mean Corpuscular Hemoglobin 29.9, Mean Corpuscular Hemoglobin Concent 32.9, Mean Platelet Volume 11.7, Neutrophils (%) (Auto) 59.0, Lymphocytes (%) (Auto) 30.5, Monocytes (%) (Auto) 7.8, Eosinophils (%) (Auto) 1.9, Basophils (%) (Auto) 0.6, Neutrophils # (Auto) 5.46, Lymphocytes # (Auto) 2.83, Monocytes # (Auto) 0.72, Eosinophils # (Auto) 0.18, Basophils # (Auto) 0.06 02/14/17 13:05 Test 02/14/17 13:05 White Blood Count 9.27 K/uL (4.8-10.8) Red Blood Count 4.48 M/uL (4.2-5.4) Hemoglobin 13.4 g/dL (12.0-16.0) Hematocrit 40.7 % (37-47) Mean Corpuscular Volume 90.8 fL (80-100) Mean Corpuscular Hemoglobin 29.9 pg (25-34) Mean Corpuscular Hemoglobin Concent 32.9 g/dl (32-36) Platelet Count 248 K/uL (130-400) Mean Platelet Volume 11.7 fL (7.4-10.4) Neutrophils (%) (Auto) 59.0 % Lymphocytes (%) (Auto) 30.5 % Monocytes (%) (Auto) 7.8 % Eosinophils (%) (Auto) 1.9 % Basophils (%) (Auto) 0.6 % Neutrophils # (Auto) 5.46 K/uL (1.4-6.5) Lymphocytes # (Auto) 2.83 K/uL (1.2-3.4) Monocytes # (Auto) 0.72 K/uL (0.11-0.59) Eosinophils # (Auto) 0.18 K/uL (0-0.5) Basophils # (Auto) 0.06 K/uL (0-0.2) RDW Standard Deviation 43.2 fL (36.4-46.3) RDW Coefficient of Variation 13.2 % (11.5-14.5) Immature Granulocyte % (Auto) 0.2 % Immature Granulocyte # (Auto) 0.02 K/uL (0.00-0.02) Anion Gap 6.0 mmol/L (3-11) Est Creatinine Clear Calc Drug Dose 42.3 ml/min Estimated GFR () 59.2 Estimated GFR (Non- 51.1 BUN/Creatinine Ratio 12.3 (10-20) Calcium Level 9.3 mg/dl (8.5-10.1) Total Bilirubin 0.3 mg/dl (0.2-1) Direct Bilirubin < 0.1 mg/dl (0-0.2) Aspartate Amino Transf (AST/SGOT) 33 U/L (15-37) Alanine Aminotransferase (ALT/SGPT) 37 U/L (12-78) Alkaline Phosphatase 58 U/L (45-117) Total Protein 7.8 gm/dl (6.4-8.2) Albumin 4.3 gm/dl (3.4-5.0) Lipase 156 U/L (73-393) Labs reviewed by ED physician. Medications Administered Medications (Trade) Dose Ordered Sig/Rafi Route Start Time Stop Time Status Last Admin Dose Admin Metoclopramide HCl (Reglan Inj) 10 mg NOW STAT IV 02/14/17 13:03 02/14/17 13:05 DC 02/14/17 13:19 10 MG Nitroglycerin (Nitroglycerin 2% Oint) 1 inch NOW STAT EXT 02/14/17 13:03 02/14/17 13:05 DC 02/14/17 13:18 1 INCH Diazepam (Valium Inj) 5 mg NOW STAT IV 02/14/17 13:03 02/14/17 13:05 DC 02/14/17 13:19 5 MG ED Course 1303: Ordered Diazepam 5mg IV, Nitroglycerin 1 inch EXT, Metoclopramide HCl 10mg IV, Glucagon 1mg/Syringe 1 ml @ 0 mls/min IV 1312: Past medical records reviewed. The patient was evaluated in room B12A. A complete history and physical examination was performed. 1314: I discussed the patient's case with Karoline Sarah . He will evaluate the patient for further care. 1341: Dr. Hdz will scope the patient as an outpatient because she is able to keep water down. 1348: Upon reexamination the patient is feeling better and able to keep water down. I discussed results and treatment plan with the patient. She verbalizes agreement and understanding. The patient is ready for discharge. Medical Decision The patient is a 76 year old female who presents to the ED with complaints of a food bolus. Differential diagnosis includes food impaction. This is a 76-year-old female who presents emergency department complaining of not being able swallow her own saliva after eating turkey. An IV was established, the patient was given glucagon, Reglan, Nitropaste, Valium. Repeat examination revealed much improvement the patient's symptoms. I did discuss the case with gastroenterology who actually came in independently evaluated the patient. The patient had much improvement in her symptoms and we both feel that the patient can be discharged home for follow-up. Patient and family were in agreement with treatment plan. Medication Reconcilliation Current Medication List: was personally reviewed by me Blood Pressure Screening Patient's blood pressure: Elevated blood pressure Blood pressure disposition: Referred to PCP Consults Time Called: 1312 Consulting Physician: Karoline Sarah Returned Call: 1314 I discussed the patient's case with Karoline Sarah. He will evaluate the patient for further care. 1341: Dr. Hdz will scope the patient as an outpatient because she is able to keep water down. Impression Primary Impression: Food impaction of esophagus Scribe Attestation The scribe's documentation has been prepared under my direction and personally reviewed by me in its entirety. I confirm that the note above accurately reflects all work, treatment, procedures, and medical decision making performed by me. Departure Information Dispostion Home / Self-Care Referrals José Manuel Chambers M.D. (PCP) Forms HOME CARE DOCUMENTATION FORM, IMPORTANT VISIT INFORMATION, WORK / SCHOOL INSTRUCTIONS Patient Instructions ED Foreign Body Esophageal [facility], [facility], [facility] Additional Instructions Clear liquid diet next 48 hours Follow up with Dr Hdz's office You were found to have an elevated blood pressure today (>120 sytolic or >90 diastolic). Per medicare guidelines, you need to follow up with this blood pressure screening with your Primary Care Physician (PCP). For a new PCP call [phone]. You received narcotic or benzodiazepene medication while in the emergency room today. This is an addictive medication that may cause drowziness as well as constipation. Do not drive, operate heavy machinery, or drink alcohol under the influence of this medication. You have been examined and treated today on an emergency basis only. This is not a substitute for, or an effort to provide, complete comprehensive medical care. It is impossible to recognize and treat all injuries or illnesses in a single emergency department visit. It is therefore important that you follow up closely with Dr Shar Green. Call as soon as possible for an appointment. Thank you for your time and consideration. I look forward to speaking with you again soon. Please don't hesitate to call us if you have any questions. Problem Qualifiers Primary Impression: Food impaction of esophagus Encounter type: initial encounter Qualified Codes: T18.128A - Food in esophagus causing other injury, initial encounter
[2017-02-14 13:37] LABS: BASO % 0.6 %; BASO ABS # 0.06 K/uL (0-0.2); COMPLETE YES; EOS % 1.9 %; HEMATOCRIT 40.7 % (37-47); IG% 0.2 %; LYMPH % 30.5 %; LYMPH ABS # 2.83 K/uL (1.2-3.4); MEAN CELL VOLUME 90.8 fL (80-100); MEAN CORPUSCULAR HEMOGLOBIN 29.9 pg (25-34); MEAN CORPUSCULAR HGB CONC 32.9 g/dl (32-36); MEAN PLATELET VOLUME 11.7 fL (7.4-10.4); MONO % 7.8 %; PLATELET COUNT 248 K/uL (130-400); RED BLOOD COUNT 4.48 M/uL (4.2-5.4); WHITE BLOOD COUNT 9.27 K/uL (4.8-10.8)
--- NOTE | 2017-02-14 13:37 | DIAGNOSTIC IMAGING REPORT ---
CHEST ONE VIEW PORTABLE CLINICAL HISTORY: CHEST PAIN dyspnea COMPARISON STUDY: 10/17/2016 FINDINGS: The bones soft tissues and hemidiaphragms are normal. The cardiomediastinal silhouette is normal. The lungs are clear. The pulmonary vasculature is normal. IMPRESSION: Negative chest. The above report was generated using voice recognition software. It may contain grammatical, syntax or spelling errors. Electronically signed by: Jose Ramon aBrba M.D. 02/14/2017 1:36 PM Dictated Date/Time: 02/14/2017 1:35 PM
[2017-02-14 13:46] LABS: ALT/SGPT 37 U/L (12-78); AST/SGOT 33 U/L (15-37); BLOOD UREA NITROGEN 13 mg/dl (7-18); BUN/CREATININE RATIO 12.3 (10-20); CALCIUM 9.3 mg/dl (8.5-10.1); CARBON DIOXIDE 27 mmol/L (21-32); CHLORIDE 105 mmol/L (98-107); CREATININE 1.07 mg/dl (0.60-1.20); GLUCOSE 113 mg/dl (70-99); POTASSIUM 4.2 mmol/L (3.5-5.1); SODIUM 138 mmol/L (136-145)
[2017-02-14 13:48] LABS: ALKALINE PHOSPHATASE 58 U/L (45-117)
[2017-02-14 14:00] VITALS: BP 150/80; PULSE 61; O2SAT 97
[2017-02-14] MEDS ORDERED: GLUCAGON FOR INJ 1 MG VIAL IV ONE (14:45)
== END 2017-02-14 14:01 | disposition home or self-care (01) ==
LOC: C.EDB 12:42
DX: T18.128A Food in esophagus causing other injury, initial encounter (principal); E78.5 Hyperlipidemia, unspecified; I10 Essential (primary) hypertension; M35.3 Polymyalgia rheumatica; I25.2 Old myocardial infarction; Z79.82 Long term (current) use of aspirin; Z79.899 Other long term (current) drug therapy; Z87.891 Personal history of nicotine dependence; X58.XXXA Exposure to other specified factors, initial encounter

== ENCOUNTER → 2017-03-14 | Outpatient (CLI) | payer OTHER ==
[2017-03-14 12:47] LABS: ALT/SGPT 36 U/L (12-78); BLOOD UREA NITROGEN 12 mg/dl (7-18); BUN/CREATININE RATIO 14.4 (10-20); CARBON DIOXIDE 28 mmol/L (21-32); CHLORIDE 104 mmol/L (98-107); CHOLESTEROL 194 mg/dl (0-200); CREATININE 0.82 mg/dl (0.60-1.20); GLUCOSE 106 mg/dl (70-99); POTASSIUM 4.3 mmol/L (3.5-5.1); SODIUM 138 mmol/L (136-145); TRIGLYCERIDES 152 mg/dl (0-150); VERY LOW DENSITY LIPOPROT CALC 30 mg/dl
[2017-03-14 12:50] LABS: ALB/GLOB RATIO 1.3 (0.9-2); ALKALINE PHOSPHATASE 49 U/L (45-117); AST/SGOT 23 U/L (15-37); CHOLESTEROL/HDL RATIO 3.5; HDL CHOLESTEROL 56 mg/dl
== END | disposition home or self-care (01) ==
LOC: C.LABSPEC 12:24
PROVIDERS: ATTEND Internal Medicine
DX: Z00.00 Encounter for general adult medical examination without abnormal findings (principal); E78.5 Hyperlipidemia, unspecified; I25.10 Atherosclerotic heart disease of native coronary artery without angina pectoris; I10 Essential (primary) hypertension; M35.3 Polymyalgia rheumatica

== ENCOUNTER → 2017-03-31 | Outpatient (CLI) | payer OTHER ==
[2017-04-14 15:26] LABS: FECAL OCCULT BLOOD #1 NEGATIVE (NEGATIVE); FECAL OCCULT BLOOD #2 NEGATIVE (NEGATIVE); FECAL OCCULT BLOOD #3 NEGATIVE (NEGATIVE)
== END | disposition home or self-care (01) ==
LOC: C.LABSPEC 14:53
PROVIDERS: ATTEND Internal Medicine
DX: Z12.11 Encounter for screening for malignant neoplasm of colon (principal)

== ENCOUNTER → 2017-07-29 | Outpatient (CLI) | payer OTHER ==
[~2017-07-29] MED LIST changes: -METO50TA7 PO; +METO50TA8 PO
--- NOTE | 2017-07-29 11:19 | DIAGNOSTIC IMAGING REPORT ---
R INJ MAJOR JNT SHLDR,HIP,KNEE FLUOROSCOPY TIME: 13 seconds HISTORY: Chronic right hip pain. Single spot fluoroscopic image was submitted. PROCEDURE: After obtaining written informed consent, the patient was placed supine on the fluoroscopy table. A suitable site for needle insertion was marked using fluoroscopic guidance. The right hip was prepped and draped in the usual sterile fashion. 1% lidocaine was used for skin, subcutaneous and deep soft tissue anesthesia. Under intermittent fluoroscopic guidance, a 22 gauge x 3.5 inch spinal needle was inserted into the right femoral acetabular joint. 2 cc of Optiray 300 was injected to confirm the intra-articular location. This is followed by a mixture of 5cc of 0.5% Sensorcaine and 2 cc of Celestone at the request of the referring physician. The needle was then removed. There were no apparent complications. IMPRESSION: Fluoroscopic-guided right hip steroid injection without immediate complication. The above report was generated using voice recognition software. It may contain grammatical, syntax or spelling errors. Electronically signed by: Giancarlo Harris M.D. 07/29/2017 11:18 AM Dictated Date/Time: 07/29/2017 11:16 AM
--- NOTE | 2017-07-29 11:21 | DIAGNOSTIC IMAGING REPORT ---
Josh MADSEN SHLDR,HIP,KNEE FLUOROSCOPY TIME: 14 seconds. One spot fluoroscopic image was submitted. HISTORY: Chronic left hip pain. PROCEDURE: After obtaining written informed consent, the patient was placed supine on the fluoroscopy table. A suitable site for needle insertion was marked using fluoroscopic guidance. The left hip was prepped and draped in the usual sterile fashion. 1% lidocaine was used for skin, subcutaneous and deep soft tissue anesthesia. Under intermittent fluoroscopic guidance, a 22 gauge x 3.5 inch spinal needle was inserted into the left femoral acetabular joint joint. 2 cc of Optiray 300 was injected to confirm the intra-articular location. This is followed by a mixture of 5cc of 0.5% Sensorcaine and 2 cc of Celestone at the request of the referring physician. The needle was then removed. There were no apparent complications. IMPRESSION: Fluoroscopic-guided left hip steroid injection without immediate complication. The above report was generated using voice recognition software. It may contain grammatical, syntax or spelling errors. Electronically signed by: Giancarlo Harris M.D. 07/29/2017 11:19 AM Dictated Date/Time: 07/29/2017 11:18 AM
== END | disposition home or self-care (01) ==
LOC: C.RADBC 09:42
PROVIDERS: ATTEND Orthopaedic Surgery
DX: M16.0 Bilateral primary osteoarthritis of hip (principal)

== ENCOUNTER → 2017-10-20 | Outpatient (CLI) | payer OTHER ==
--- NOTE | 2017-10-21 15:24 | MAMMOGRAPHY REPORT ---
BILATERAL DIGITAL SCREENING MAMMOGRAM TOMOSYNTHESIS WITH CAD: 10/20/2017 CLINICAL HISTORY: Routine screening. Patient has no complaints. TECHNIQUE: The study was acquired using full field digital technology and interpreted from soft copy. Breast tomosynthesis in addition to standard 2D mammography was performed. Current study was also ev aluated with a Computer Aided Detection (CAD) system. COMPARISON: Comparison is made to exams dated: 10/17/2016 mammogram, 10/16/2015 mammogram, 10/13/2014 m ammogram, 10/12/2013 mammogram, 10/09/2012 mammogram, and 09/27/2010 mammogram - [facility]ter. BREAST COMPOSITION: There are scattered areas of fibroglandular density in both breasts. FINDINGS: The parenchymal pattern is unchanged. No developing mass, architectural distortion or cluster of susp icious microcalcifications is seen in either breast. There is a benign calcification in the left yenifer ast. IMPRESSION: ACR BI-RADS CATEGORY 2: BENIGN There is no mammographic evidence of malignancy. A 1 year screening mammogram is recommended.( 019) The patient will receive written notification of the results. Some breast cancers are not detected with mammography. A negative mammographic report should not josafat y biopsy if a clinically suggestive mass is present. Mariam Messer M.D. ay/:10/20/2017 20:39:42 Software Systems Analyst: Cara Martínez, [facility] letter sent: Normal 1/2 BI-RADS Code: ACR BI-RADS Category 2: Benign
== END | disposition home or self-care (01) ==
LOC: C.MAMM 10:31
PROVIDERS: ATTEND Internal Medicine
DX: Z12.31 Encounter for screening mammogram for malignant neoplasm of breast (principal)

== ENCOUNTER 2018-07-17 07:27 | Inpatient (IN) ==
--- NOTE | 2018-06-30 15:25 | PAT Medication Instructions ---
Medication Instructions Date of Service June 30, 2018 Home Medications alendronate [Fosamax] 1 tab PO WK aspirin 325 mg PO DAILY atorvastatin 80 mg PO HS docusate sodium [Colace] 2 mg PO HS losartan 25 mg PO DAILY metoprolol succinate 25 mg PO HS multivitamin [Multiple Vitamins] 1 tab PO DAILY omeprazole magnesium [Prilosec OTC] 20 mg PO QAM psyllium husk [Fiber (psyllium 2 tab PO QAM Continue as directed alendronate [Fosamax] 1 tab PO WK ASK your prescriber and surgeon aspirin 325 mg PO DAILY DO NOT take the morning of surgery losartan 25 mg PO DAILY multivitamin [Multiple Vitamins] 1 tab PO DAILY psyllium husk [Fiber (psyllium 2 tab PO QAM Take morning of surgery With a small sip of water, OTHERWISE NOTHING TO EAT OR DRINK AFTER MIDNIGHT: omeprazole magnesium [Prilosec OTC] 20 mg PO QAM Take evening before surgery atorvastatin 80 mg PO HS docusate sodium [Colace] 2 mg PO HS metoprolol succinate 25 mg PO HS Other Notes If you have any questions please call us at [phone] or [phone] or [phone] or [phone]
--- NOTE | 2018-07-01 10:30 | Anesthesiology Consultation ---
Date of Service July 01, 2018 Assessment & Plan (1) Encounter for pre-operative examination: - Cardio: 07/06/18: "acceptable cardiac risk for hip replacement surgery without further cardiac testing." Chart Review Chart Review: Acceptable Risk for Surgery and Patient seen in Pre Admission Testing Teaching & Discussion Pre-Anesthesia Teaching/Discussion Notes: Instructed NPO after midnight before surgery,except medications with 15 cc of water. Medication instructions provided according to the PAT guidelines. History Surgery Operation Date: 07/17/18 08:30 Proposed Procedures p Right Anterior Total Hip Arthroplasty - Alex Willams, Height/Weight Height: 5 ft 1.5 in Weight: 72.9 kg Allergies Allergy/AdvReac Type Severity Reaction Status Date / Time Sulfa (Sulfonamide Allergy Severe "throat Verified 06/24/18 09:00 Antibiotics) closes up" Penicillins Allergy Unknown Rash Verified 06/24/18 09:00 erythromycin base AdvReac Severe stomach Verified 06/24/18 09:00 cramps and diarrhea oxycodone AdvReac Unknown "just get Verified 06/24/18 09:00 funny" Medications Home Medications Medication Instructions Recorded Confirmed Last Taken alendronate [Fosamax] 1 tab PO WK 06/24/18 06/24/18 06/21/18 aspirin 325 mg PO DAILY 06/24/18 06/24/18 Unknown atorvastatin 80 mg PO HS 06/24/18 06/24/18 06/23/18 docusate sodium [Colace] 2 mg PO HS 06/24/18 06/24/18 06/23/18 losartan 25 mg PO DAILY 06/24/18 06/24/18 Unknown metoprolol succinate 25 mg PO HS 06/24/18 06/24/18 06/23/18 multivitamin [Multiple Vitamins] 1 tab PO DAILY 06/24/18 06/24/18 Unknown omeprazole magnesium [Prilosec OTC] 20 mg PO QAM 06/24/18 06/24/18 06/24/18 psyllium husk [Fiber (psyllium 2 tab PO QAM 06/24/18 06/24/18 06/24/18 husk)] Past Medical History Medical History HTN (hypertension) Dyslipidemia Polymyalgia rheumatica CAD (coronary artery disease) SUKHWINDER X 1 TO LAD (2011) History of heart attack SUKHWINDER X 1 TO LAD (2011) Stomach ulcer Past Surgical History Surgical History History of bilateral cataract extraction History of cardiac cath 2011= SUKHWINDER X 1 TO LAD 2017= NO STENTS History of colonoscopy History of hysterectomy History of right oophorectomy History of tonsillectomy and adenoidectomy Past Anesthesia History No Hx of Anesthesia Complications and No Family Hx of Anesthesia Complications History of PONV No Motion Sickness Screening History of Motion Sickness: No Social History Smoking Status: Former smoker tobacco type: cigarettes Do You Dip or Chew Tobacco: No Smoking End Date: QUIT 1974 Hx Alcohol Use: Yes Alcohol type: beer and wine alcohol intake frequency: a few times a week Hx Substance Use: No substance use type: does not use Exercise / Class Metabolic Activity III < 4 Walking/Shop/Light housework Review of Systems Patient denies chest pain, shortness of breath, reflux, cough, wheezing, palpitations. Physical Exam Vital Signs VITALS BP 110/69 P 53 TEMP 97.7 SP02 97%RA RESP 18 PHYSICAL Full neck and c-spine range of motion. Full TMJ range of motion. TMD 4 finger breaths Mallampati Score 1 Dentition: missing molars, several crowns all over Lungs: clear throughout to auscultation Cardiac: regular rate and rhythm, no murmurs noted Spine: normal Carotid arteries: negative bruit Extremities: no edema Testing Electrocardiogram Date: 07/01/18 Findings: + SB @ (56) Chest X-Ray Date: 07/01/18 Findings: + NAD Stress Test Date: 10/01/16 Type: exercise Abnormal stress ECHO at 89% MPHR suggesting mid to distal LAD ischemia and potentially a small area of RCA ischemia. Poor exercise tolerance. EF 60-65%. Type 2 DD. Mild MR. Mid to distal anterior HK. Inferior base HK. Subsequent ca rdiac cath done 10/03/16 Cardiac Catheterization Date: 10/03/16 1. Mild nonobstructive CAD within the mid LAD. 2. Patent proximal LAD stent. 3. No significant aortic stenosis. 4. Normal LVEDP. Laboratory Results 07/01/18 10:50 07/01/18 10:50 Blood Type O Positive 07/01/18 10:50 Antibody Screen NEGATIVE 07/01/18 10:50 PT 10.6 Seconds (9.0-12.0) 07/01/18 10:50 INR 1.0 (0.9-1.1) 07/01/18 10:50 APTT 25.7 Seconds (21.0-31.0) 07/01/18 10:50
--- NOTE | 2018-07-01 11:23 | XRay Report ---
XR chest Pre-admission PA/Lat CLINICAL HISTORY: pat preoperative evaluation COMPARISON STUDY: 12 02/14/2017 FINDINGS: The bones soft tissues and hemidiaphragms are normal. The cardiomediastinal silhouette is n ormal. The lungs are clear. The pulmonary vasculature is normal. IMPRESSION: Negative chest. The above report was generated using voice recognition software. It may contain grammatical, syntax or spelling errors. Electronically signed by: Jose Ramon Barba M.D. 07/01/2018 11:21 AM
[2018-07-01 12:37] LABS: BUN Creatinine Ratio 14.1 (10-20); Calcium 9.3 mg/dl (8.5-10.1); Creatinine Clr Calc Pharmacy 47.8 ml/min; Est GFR (African American) 68.8; Est GFR (Non-African American) 59.3; Potassium 4.5 mmol/L (3.5-5.1)
[2018-07-01 12:46] LABS: Basophils # (auto) 0.03 K/uL (0-0.2); Basophils % (auto) 0.4 %; Eosinophils # (auto) 0.19 K/uL (0-0.5); Eosinophils % (auto) 2.6 %; Hematocrit (blood only) 39.1 % (37-47); Hemoglobin 12.5 g/dL (12.0-16.0); Immature Granulocytes # (auto) 0.01 K/uL (0.00-0.02); Immature Granulocytes % (auto) 0.1 %; Lymphocytes # (auto) 1.71 K/uL (1.2-3.4); Lymphocytes % (auto) 23.8 %; Mean Corpuscular Volume 90.5 fL (80-100); Mean Platelet Volume 12.7 fL (7.4-10.4); Monocytes # (auto) 0.54 K/uL (0.11-0.59); Monocytes % (auto) 7.5 %; Neutrophils # (auto) 4.71 K/uL (1.4-6.5); Neutrophils % (auto) 65.6 %; Platelet Count 238 K/uL (130-400); RDW Coefficient of Variation 14.1 % (11.5-14.5); RDW Standard Deviation 46.8 fL (36.4-46.3); Red Blood Count 4.32 M/uL (4.2-5.4); White Blood Count 7.19 K/uL (4.8-10.8)
[2018-07-01 12:59] LABS: Partial Thromboplastin Ratio 0.9; Partial Thromboplastin Time 25.7 Seconds (21.0-31.0); Prothrombin Time 10.6 Seconds (9.0-12.0)
--- NOTE | 2018-07-16 21:22 | History & Physical Report ---
Date of Service July 16, 2018 Assessment & Plan (1) Osteoarthritis of right hip: Treated with a right anterior total hip arthroplasty. Postoperatively she will be started on aspirin for DVT prophylaxis. She will be kept overnight in the hospital for postop medical management. She claims to use energy physical therapy upon discharge. Present on Admission?: Yes History of Present Illness Chief Complaint: Primary osteoarthritis of the right hip Primary Care Provider: José Manuel Gottlieb MD He is a pleasant 77-year-old female who has been dealing with increasing right hip and groin pain. X-rays and clinical examination have been diagnostic for primary osteoarthritis of the right hip. She has had intra-articular injections which took care of all her pain. Unfortunately pain is returned. She is elected proceed with a right anterior total hip arthroplasty. Allergies Allergy/AdvReac Type Severity Reaction Status Date / Time Sulfa (Sulfonamide Allergy Severe "throat Verified 06/24/18 09:00 Antibiotics) closes up" Penicillins Allergy Unknown Rash Verified 06/24/18 09:00 erythromycin base AdvReac Severe stomach Verified 06/24/18 09:00 cramps and diarrhea oxycodone AdvReac Unknown "just get Verified 06/24/18 09:00 funny" Home Medications Home Medications Medication Instructions Recorded Confirmed Type alendronate [Fosamax] 1 tab PO WK 06/24/18 06/24/18 History aspirin 325 mg PO DAILY 06/24/18 06/24/18 History atorvastatin 80 mg PO HS 06/24/18 06/24/18 History docusate sodium [Colace] 2 mg PO HS 06/24/18 06/24/18 History losartan 25 mg PO DAILY 06/24/18 06/24/18 History metoprolol succinate 25 mg PO HS 06/24/18 06/24/18 History multivitamin [Multiple Vitamins] 1 tab PO DAILY 06/24/18 06/24/18 History omeprazole magnesium [Prilosec OTC] 20 mg PO QAM 06/24/18 06/24/18 History psyllium husk [Fiber (psyllium 2 tab PO QAM 06/24/18 06/24/18 History husk)] Past Med/Surg History Medical History HTN (hypertension) Dyslipidemia Polymyalgia rheumatica CAD (coronary artery disease) SUKHWINDER X 1 TO LAD (2011) History of heart attack SUKHWINDER X 1 TO LAD (2011) Stomach ulcer Surgical History History of bilateral cataract extraction History of cardiac cath 2012= SUKHWINDER X 1 TO LAD 2017= NO STENTS History of colonoscopy History of hysterectomy History of right oophorectomy History of tonsillectomy and adenoidectomy Social History Preferred Language: Romanian Communication Ability: Effective Set Up Inspector Required: No Beliefs That Will Affect Care: None Current Living Situation: Spouse Other Information That Helps Us Care for You: No Feels Safe at Home: Yes Smoking Status: Former smoker Tobacco Type: cigarettes Do You Dip or Chew Tobacco: No Smoking End Date: QUIT 1974 Hx Alcohol Use: Yes Alcohol type: beer and wine Hx Substance Use: No Review of Systems All systems reviewed & are unremarkable except as noted in HPI & below Physical Exam Constitutional: WD/WN, vitals as above Eyes: PERRL, conjunctivae normal, anicteric sclerae ENMT: external ear and nose normal, oropharynx normal Neck: trachea midline, no thyromegaly Respiratory: normal respiratory effort Cardiovascular: RRR, no murmur, no edema Gastrointestinal (Abdomen): normal bowel sounds, soft, nontender, no hepatosplenomegaly Musculoskeletal: Physical examination of the right hip reveals decreased range of motion with flexion, internal and external rotation. There is significant groin pain with forced internal rotation of the hip his leg lengths are essentially equal. Psychiatric: A+Ox3, euthymic affect Results & Data Diagnostic Findings Radiographs of the right hip and pelvis demonstrate advanced osteoarthritis with joint space narrowing osteophyte formation and [id number] articulation.
[~2018-07-17 07:27] MED LIST changes: +ACETAMINOPHEN 500 MG TAB PO SCH; -ASPEC325 PO; -ATOR-24 PO; +BUPIVACAINE 0.5 % 5 MG/1 ML PF 10ML VIAL ONE; -CALC625T35 PO; +CEFAZOLIN 2000MG 2,000 MG/15 ML SYR IV SCH; +FAMOTIDINE 20 MG TAB PO SCH; +GABAPENTIN 300 MG PO SCH; -LOSA1TAB PO; +LR 500ML BOLUS, THEN 15ML/HR IV SCH; +LR 60ML/HR IV SCH; -METO50TA8 PO; -MULT-506 PO; +ROPIVACAINE 0.5% HCL/PF 150 MG, BUPIVACAINE 0.5% MPF 30 ML, EPINEPHrine 30MG/30ML (OR U... INFIL SCH; +TRANEXAMIC ACID 1,000 MG **IV Intra-op IV SCH; +TRANEXAMIC ACID 1,000 MG **IV Pre-op IV SCH
[2018-07-17] MEDS ORDERED: MIDAZOLAM HCL 1 MG/ML 2ML VIAL ONE ×2 (07:42→11:05)
[2018-07-17] MEDS ORDERED: fentaNYL citrate 100 MCG/2 ML VIAL ONE (07:42)
--- NOTE | 2018-07-17 09:11 | History & Physical Bridge Note ---
Date of Service July 17, 2018 History & Physical Bridge Note I have examined the patient, reviewed the History & Physical and in the interval since the performance of the History & Physical I have noted the following changes of clinical significance: no changes noted
[2018-07-17] MEDS ORDERED: ORTHO JOINT ANESTHETIC ONE (09:34)
[2018-07-17] MEDS ORDERED: POVIDONE-IODINE OP SOLN 30 ML BTL ONE (09:34)
[2018-07-17] MEDS ORDERED: ePHEDrine sulfate 50 MG/ML AMP IV PRN (09:41)
[2018-07-17] MEDS ORDERED: ATROPINE SULFATE 0.1 MG/ML 10ML SYR IV PRN (09:41)
[2018-07-17] MEDS ORDERED: ONDANSETRON INJ 2 MG/ML 2 ML VIAL IV PRN ×2 (09:41→14:05)
[2018-07-17] MEDS ORDERED: fentaNYL citrate 100 MCG/2 ML VIAL IV PRN (09:41)
[2018-07-17] MEDS ORDERED: PROPOFOL IV EMULSION 10 MG/ML 20 ML VIAL IV ONE (11:09)
[2018-07-17] MEDS ORDERED: ONDANSETRON INJ 2 MG/ML 2 ML VIAL ONE (11:09)
[2018-07-17] MEDS ORDERED: LIDOCAINE HCL 2% 2 ML VIAL/AMP(20MG/ML) INFIL ONE (11:09)
[2018-07-17] MEDS ORDERED: ePHEDrine sulfate 50 MG/ML SYR ONE (11:53)
[2018-07-17] MEDS ORDERED: ePHEDrine sulfate 50 MG/ML AMP ONE (11:53)
[2018-07-17] MEDS ORDERED: PHENYLEPHRINE 100MCG/ML 5ML SYR ONE (11:53)
--- NOTE | 2018-07-17 12:44 | Operative Report ---
Post Operative Report Pre & Post Diagnosis Operation Date: 07/17/18 10:00 Pre-Op Diagnosis: Primary Osteoarthritis Right Hip Post-Op Diagnosis: Primary Osteoarthritis Right Hip Procedure Operation Date: 07/17/18 10:00 Actual Procedures p Right Anterior Total Hip Arthroplasty--Uncemented(Right) - Alex Willams DO Surgeon Alex Willams DO [employer] Aelx Guzman PAC Estimated Blood Loss 200 Findings Consistent with Post-Op Diagnosis Specimens Right femoral head Complications none Disposition Disposition: Recovery Room Indications Brian is a pleasant 77-year-old female who presented my office with complaints of increasing right hip and groin pain. X-rays and clinical examination were diagnostic for primary also arthritis of the hip. She failed conservative treatment including injections. She elected to proceed with a right total hip arthroplasty. Description of Procedure Implants used Biomet Taperloc total hip arthroplasty system with a size 10 high offset Taperloc stem, a 48 mm G7 cup with a 25mm screw, an E1 polyethylene liner, a 32 mm ceramic head with a -3 neck. Patient arrived at the hospital for the above procedure. They were seen in the preoperative holding area and the operative extremity was identified and signed. They were given a spinal anesthetic. They were given a preoperative antibiotic and TXA. They were taken back To the operating room and laid on the table in the supine position. The leg was brought out through a Puristst leg positioner. The hip was then prepped and draped in sterile fashion. A timeout was done and the patient in upper extremities properly identified. An anterior approach was used. Dissection was taken down through the fascia and the tensor muscle belly was retracted laterally and the rectus was retracted medially. The circumflex vessels were identified and ligated. The capsule was then incised and tagged for later repair. The femoral neck was then cut and the femoral head was removed. The acetabulum was exposed. Time was spent doing a complete circumferential labral release. Sequential reaming of the acetabulum up to a size 47 reamer was done. Final reamings were done under fluoroscopy to ensure appropriate version. A Biomet 48 mm G7 cup was then impacted into place. A single 25 mm screw was placed. The E1 polyethylene liner was then snapped into place. Surrounding soft tissues were then injected with 100 cc of an orthopedic pain control cocktail. The proximal femur was then exposed. Sequential broaching up to a size 10 broach was done. Off that broach a size 32 head with a -3 neck was trialed. The hip was reduced and fluoroscopic images showed anatomic alignment of the implants in acceptable length. The broach was removed. The final size 10 high offset Taperloc stem was then impacted into place. A ceramic 32 mm head with a -3 neck was then impacted into place in the hip was reduced. Final fluoroscopic images showed anatomic reduction of the hip. The capsule was then closed with #1 Vicryl suture. A dilute betadyne lavage was then done for 3 minutes. The joint was then irrigated with normal saline solution. The fascia was closed with #1 PDS suture. Skin was closed with 2-0 Vicryl, kay, and a Ashlyn VAC dressing. The patient was then transferred to a hospital bed and taken to the post anesthesia care unit in stable condition. They tolerated the procedure well. I attest to the content of the Intraoperative Record and any orders documented therein. Any exceptions are noted below.
--- NOTE | 2018-07-17 13:30 | Fluoroscopy Report ---
FL hip RT 1V CLINICAL HISTORY: RT ANTERIOR HIPO COMPARISON STUDY: None FLUOROSCOPY TIME: 28 seconds NUMBER OF FLUOROSCOPIC IMAGES: 2 FINDINGS: Intraoperative findings consistent with a right anterior hip total replacement. Good contac t between prosthetic and underlying bone. IMPRESSION: Anatomic alignment post total right hip arthroplasty. The above report was generated using voice recognition software. It may contain grammatical, syntax or spelling errors. Electronically signed by: Jose Ramon Barba M.D. 07/17/2018 1:29 PM
--- NOTE | 2018-07-17 13:30 | Anesthesiology Progress Note ---
Date of Service July 17, 2018 Anesthesia Post Procedure Vital Signs Vital Signs: Temp Pulse Pulse Resp BP Pulse Ox 07/17/18 13:20 56 L 18 119/58 L 93 07/17/18 13:10 56 L 14 136/61 94 07/17/18 13:08 97.5 F L 57 L 16 120/51 L 96 07/17/18 07:59 98.2 F 65 18 184/71 H 99 Pain Intensity Left Hip: Pain Intensity: 0 Notes Mental Status: alert / awake / arousable and participated in evaluation Patient Amnestic to Procedure: Yes Nausea / Vomiting: adequately controlled Pain: adequately controlled Airway Patency, RR, SpO2: stable & adequate BP & HR: stable & adequate Hydration State: stable & adequate Neuraxial Anesthesia: was administered and sensory block is resolving Anesthetic Complications: no major complications apparent and Pt Satisfied with anesthetic care
--- NOTE | 2018-07-17 13:52 | XRay Report ---
AP PELVIS, CROSSTABLE LATERAL RIGHT HIP History: Right total hip arthroplasty. Degenerative arthritis. Postop. FINDINGS: The patient is status post a right total hip arthroplasty. The hardware is intact. No fract ure or dislocation. Skin kay are in place. IMPRESSION: Right total hip arthroplasty. No evidence for hardware complication Electronically signed by: Robin Pool M.D. 07/17/2018 1:51 PM
[2018-07-17] MEDS ORDERED: NALOXONE HCL 0.4 MG/1 ML VIAL/CARP IV PRN (14:05)
[2018-07-17] MEDS ORDERED: METOCLOPRAMIDE HCL INJ 5 MG/ML 2 ML VIAL IV PRN (14:05)
[2018-07-17] MEDS ORDERED: HYDROmorphone INJ 0.5 MG/0.5 ML SYR IV PRN (14:05)
[2018-07-17] MEDS ORDERED: MAGNESIUM HYDROXIDE SUSP 30 ML UDC PO PRN (14:05)
[2018-07-17] MEDS ORDERED: SODIUM CHLORIDE 0.9% 1000ML 1,000 ML IV SCH (14:05)
[2018-07-17] MEDS ORDERED: BISACODYL 10 MG SUPP PR PRN (14:05)
[2018-07-17] MEDS: ACETAMINOPHEN 500 MG TAB PO SCH ×2 (15:47→21:51)
[2018-07-17] MEDS: KETOROLAC TROMETHAMINE 15 MG/ML VIAL IV SCH ×2 (15:47→21:51)
[2018-07-17] MEDS: CLINDAMYCIN 600 MG in DEXTROSE 5% 50 ML IV SCH (17:42)
[2018-07-17] MEDS: TRAMADOL HCL 50 MG TABLET PO PRN (19:24)
[2018-07-17] MEDS: DOCUSATE SODIUM 100 MG CAP PO SCH (20:41)
[2018-07-17] MEDS: ASPIRIN 81 MG ECTAB PO SCH (20:43)
[2018-07-17] MEDS ORDERED: METOPROLOL SUCC 50MG EXT REL TAB PO SCH (21:00)
[2018-07-17] MEDS ORDERED: ATORVASTATIN 40 MG TAB PO SCH (21:00)
[2018-07-17] MEDS ORDERED: SENNA 8.6 MG TAB PO SCH (21:00)
[2018-07-18] MEDS: CLINDAMYCIN 600 MG in DEXTROSE 5% 50 ML IV SCH (01:57)
[2018-07-18] MEDS: KETOROLAC TROMETHAMINE 15 MG/ML VIAL IV SCH ×2 (03:54→10:30)
[2018-07-18] MEDS: ACETAMINOPHEN 500 MG TAB PO SCH (05:18)
[2018-07-18 06:17] LABS: Basophils # (auto) 0.01 K/uL (0-0.2); Basophils % (auto) 0.1 %; Eosinophils # (auto) 0.01 K/uL (0-0.5); Eosinophils % (auto) 0.1 %; Hematocrit (blood only) 29.2 % (37-47); Hemoglobin 9.5 g/dL (12.0-16.0); Immature Granulocytes # (auto) 0.04 K/uL (0.00-0.02); Immature Granulocytes % (auto) 0.3 %; Lymphocytes # (auto) 1.24 K/uL (1.2-3.4); Lymphocytes % (auto) 8.9 %; Mean Corpuscular Hgb Conc 32.5 g/dL (32-36); Mean Corpuscular Volume 89.8 fL (80-100); Mean Platelet Volume 12.1 fL (7.4-10.4); Monocytes # (auto) 0.76 K/uL (0.11-0.59); Monocytes % (auto) 5.5 %; Neutrophils # (auto) 11.83 K/uL (1.4-6.5); Neutrophils % (auto) 85.1 %; Platelet Count 214 K/uL (130-400); RDW Coefficient of Variation 13.3 % (11.5-14.5); Red Blood Count 3.25 M/uL (4.2-5.4); White Blood Count 13.89 K/uL (4.8-10.8)
[2018-07-18 06:45] LABS: BUN Creatinine Ratio 11.5 (10-20); Calcium 8.7 mg/dl (8.5-10.1); Creatinine Clr Calc Pharmacy 52.6 ml/min; Est GFR (African American) 77.7; Potassium 3.9 mmol/L (3.5-5.1)
--- NOTE | 2018-07-18 08:26 | Orthopedic Progress Note ---
Date of Service July 18, 2018 Assessment & Plan (1) Osteoarthritis of right hip: Overall she is doing very well. She is happy with her progress. Her pain is well controlled. She is on aspirin 81 mg twice a day for DVT prophylaxis. She will be seen by physical therapy this morning. She will be discharged home later this morning with [facility]. She will follow-up with orthopedics in 2 weeks. Present on Admission?: Yes Erwin Torres was seen and examined at bedside this morning. Overall she is doing very well. She is already been out and ambulating into the hallways. She was able t o get some sleep last night. She does not have much pain in the hip. She is no complaints. Physical Exam Musculoskeletal: On physical examination of the right hip, the Ashlyn VAC dressing is to suction. Her leg lengths are equal. She is active dorsiflexion and plantar flexion of the right ankle. Sensations intact throughout. Results & Data Vital Signs (Past 12 Hours) Vital Signs Temp Pulse Pulse Resp BP BP Pulse Ox 07/18/18 07:01 36.6 C 65 16 136/56 L 97 07/18/18 04:05 36.5 C 60 16 120/60 98 07/18/18 00:00 36.5 C 63 16 112/64 97 07/17/18 21:47 58 L 114/66 07/17/18 20:31 58 L 60 118/62 116/64 Laboratory Results H & H 07/01/18 07/18/18 Range/Units 10:50 05:00 Hgb 12.5 9.5 L (12.0-16.0) g/dL Hct 39.1 29.2 L (37-47) % Coagulation 07/01/18 Range/Units 10:50 INR 1.0 (0.9-1.1) Diagnostic Findings Postoperative x-rays of the right hip show the prosthesis to be in anatomic alignment without any evidence of fracture, dislocation, or loosening.
--- NOTE | 2018-07-18 08:27 | Discharge Summary ---
Date of Service July 18, 2018 Admission HPI Per Admitting Provider He is a pleasant 77-year-old female who has been dealing with increasing right hip and groin pain. X-rays and clinical examination have been diagnostic for primary osteoarthritis of the right hip. She has had intra-articular injections which took care of all her pain. Unfortunately pain is returned. She is elected proceed with a right anterior total hip arthroplasty. Specialty Data Orthopedic H & H 07/01/18 07/18/18 Range/Units 10:50 05:00 Hgb 12.5 9.5 L (12.0-16.0) g/dL Hct 39.1 29.2 L (37-47) % Coagulation 07/01/18 Range/Units 10:50 INR 1.0 (0.9-1.1) Discharge Data Consultations 07/18/18 08:00 Consult Case Management - Discharge Planning Routine Procedures Performed Operation Date: 07/17/18 10:00 Actual Procedures p Right Anterior Total Hip Arthroplasty--Uncemented(Right) - Alex Willams DO Hospital Course (1) Osteoarthritis of right hip: On July 17, [address] [facility] and underwent a right total hip arthroplasty without complication. She had a spinal anesthetic. Postoperatively she was started on aspirin for DVT prophylaxis and discharged to general orthopedic floors. Her hospital course was uneventful. On postop day #1 her H&H was stable and her pain was well controlled. She was able to ambulate well with physical therapy. She was then discharged to home with [facility]. She will follow-up with orthopedics in 2 weeks. Discharge Instructions Home Medications Medication Instructions Recorded Confirmed alendronate [Fosamax] 1 tab PO WK 06/24/18 06/24/18 aspirin 325 mg PO DAILY 06/24/18 07/17/18 atorvastatin 80 mg PO HS 06/24/18 06/24/18 docusate sodium [Colace] 2 mg PO HS 06/24/18 06/24/18 losartan 25 mg PO DAILY 06/24/18 07/17/18 metoprolol succinate 25 mg PO HS 06/24/18 06/24/18 multivitamin [Multiple Vitamins] 1 tab PO DAILY 06/24/18 07/17/18 omeprazole magnesium [Prilosec OTC] 20 mg PO QAM 06/24/18 06/24/18 psyllium husk [Fiber (psyllium 2 tab PO QAM 06/24/18 06/24/18 husk)] Previous Rx's Medication Instructions Recorded aspirin [Ecotrin Low Strength] 81 mg PO BID #84 tab 07/18/18 tramadol 50 - 100 mg PO Q4H PRN #40 tab 07/18/18
[2018-07-18] MEDS: DOCUSATE SODIUM 100 MG CAP PO SCH (08:33)
[2018-07-18] MEDS: ASPIRIN 81 MG ECTAB PO SCH (08:34)
[2018-07-18] MEDS: TRAMADOL HCL 50 MG TABLET PO PRN (08:38)
[2018-07-18] MEDS ORDERED: PANTOprazole 40 MG TAB PO SCH (09:00)
[2018-07-18] MEDS ORDERED: LOSARTAN POTASSIUM 25 MG TAB PO SCH (09:00)
[2018-07-18] MEDS ORDERED: MULTIVITAMIN TAB PO SCH (09:00)
[2018-07-19] MEDS ORDERED: ALENDRONATE SODIUM 70 MG TAB PO SCH (06:30)
--- OUTSIDE RECORDS SUMMARY | 2018-07-20 21:51 | External Medical Summary | Continuity of Care Document ---
:1940 Author Name Bertram Parrish, Provider Address Unavailable Unavailable , Care Team Providers Name Role Phone Kenia Parrish, Edgard King Unavailable [email or web address] Unavailable Unavailable Unavailable Unavailable Unavailable Problems Polymyalgia rheumatica (725) (M35.3) CAD (coronary artery disease) (414.00) (I25.10) Hypercholesterolemia (272.0) (E78.00) Hypertension (401.9) (I10) Palpitations (785.1) (R00.2) Allergies and Adverse Reactions Erythromycin TABS (Allergy) Reaction: Na usea Penicillins (Allergy) Reaction: Rash Percodan TABS (Allergy) Reaction: Itchin g, Difficulty Swallowing Sulfa Drugs (Allergy) Reaction: Difficul ty Swallowing, Itching Medications Aspirin 325 MG Oral Tablet; TAKE 1 TABLET DAILY. Quantity: 30 Refills: 5 Metoprolol Succinate ER 50 MG Oral Table t Extended Release 24 Hour; TAKE 1/2 TABLET DAILY. 90 Tablet Bottle Refills: 0 Lipitor 80 MG Oral Tablet; TAKE 1 TABLET DAILY. Refills: 0 One-A-Day Womens TABS; TAKE 1 TABLET DAILY. Refills: 0 Fiber Therapy 0.52 GM CAPS; TAKE 1 CAPSULE TWICE DAILY. Refills: 0 Losartan Potassium 25 MG Oral Tablet; TAKE ONE TABLET BY MOUTH ONCE DAILY Francois Aquino Start: 21-Mar-2017 Quantity: 30 Refills: 5 Fosamax 70 MG Oral Tablet; TAKE 1 TABLET ONCE EACH WEEK. Refills: 0 Stool Softener 100 MG Oral Capsule; TAKE 2 TABLETS DAILY. Refills: 0 Omeprazole 20 MG Oral Capsule Delayed Re lease; take 1 tablet by mouth once daily Refills: 0 Procedures Presence of stent in artery Immunizations Immunizations not documented Social History - Smoking Status Former smoker Plan of Treatment Planned Encounters Appointment; Edgard Aquino M.D. Start: 08-Mar-2019 10:15 R equest Planned Observations Planned Goals not documented Results No Known Results Results not documented Vital Signs 06-Jul-2018 12:00 Systolic 176 mm[Hg] Comments: Location: RUE; Position: Sitting Diastolic 90 mm[Hg] Comments: Location: RUE; Position: Sitting Height 61.5 in BMI Calculated 29.85 kg/m2 Weight 160.5625 lb Heart Rate 52 /min Comments: Location: R Radial; BSA Calculated 1.73 m2 Encounters Appointment; Edgard Aquino M.D. 06-Jul-2018 11:45 Encounter Diagnosis: Problem not documented Appointment; Edgard Aquino M.D. 25-Feb-2018 13:30 Encounter Diagnosis: Problem not documented Appointment; Edgard Aquino M.D. 26-Feb-2017 10:00 Encounter Diagnosis: Problem not documented Appointment; Edgard Aquino M.D. 22-Oct-2016 15:45 Encounter Diagnosis: Problem not documented Appointment; [facility] 08-Oct-2016 10:30 Encounter Diagnosis: Problem not documented Appointment; Keo Hernandes M.D. 03-Oct-2016 8:00 Encounter Diagnosis: Problem not documented Appointment; Edgard Aquino M.D. 08-Mar-2019 10:15 Encounter Diagnosis: Problem not documented
== END 2018-07-18 11:13 | disposition home health service (06) | DRG 470 ==
LOC: ASU 07:27 → 3E 13:07

== ENCOUNTER 2022-01-11 05:04 | Observation (INO) ==
--- NOTE | 2021-12-03 10:26 | PAT Medication Instructions ---
Medication Instructions Date of Service December 03, 2021 Home Medications Medication Instructions Recorded atorvastatin 80 mg tablet 80 mg PO HS #90 tabs 10/19/21 losartan 25 mg tablet 25 mg PO HS #90 tabs 10/19/21 metoprolol succinate 50 mg tablet,extended release 24 hr 25 mg PO HS multivitamin (Multiple Vitamins tablet) 1 tab PO HS aspirin 81 mg tablet 81 mg PO HS amiodarone 200 mg tablet 100 mg PO QPM atorvastatin 80 mg tablet 80 mg PO HS losartan 25 mg tablet 25 mg PO HS ezetimibe 10 mg tablet 10 mg PO HS fenofibrate nanocrystallized 48 mg tablet 48 mg PO HS omeprazole magnesium 10 mg oral suspension,delayed release 10 mg PO HS Take evening before surgery metoprolol succinate 50 mg tablet,extended release 24 hr 25 mg PO HS multivitamin (Multiple Vitamins tablet) 1 tab PO HS aspirin 81 mg tablet 81 mg PO HS (unless directed otherwise by surgeon) amiodarone 200 mg tablet 100 mg PO QPM atorvastatin 80 mg tablet 80 mg PO HS losartan 25 mg tablet 25 mg PO HS ezetimibe 10 mg tablet 10 mg PO HS fenofibrate nanocrystallized 48 mg tablet 48 mg PO HS omeprazole magnesium 10 mg oral suspension,delayed release 10 mg PO HS Other Notes NOTHING TO EAT OR DRINK AFTER MIDNIGHT. If you have any questions please call us at [phone] or [phone] or [phone] or [phone]
--- NOTE | 2021-12-12 10:28 | Anesthesiology Consultation ---
Date of Service December 12, 2021 Assessment & Plan (1) Encounter for pre-operative examination: - COVID screening: Per assessment on 12/12: No known COVID-19 positive contacts or current COVID-19 related symptoms. Travel screen negative. At surgeon discretion if preop Covid testing being done. - S/P Colonoscopy (09/03/21): MAC at [facility] - Outpatient joint assessment: Pt currently scheduled for inpatient pathway. If surgeon requests review for outpatient joint pathway, patient is not recommended candidate for outpatient joint program from anesthesia standpoint. - Cardiology office visit (03/07/21): "The patient is stable from a cardiovascular standpoint. She has been experiencing numerous episodes of her supraventricular tachycardia. We will reassess left ventricular systolic function. Following that evaluation, we will likely initiate and arrhythmic therapy. Initially, we spoke of using flecainide, however, she carries a history of coronary artery disease. Will likely start low-dose amiodarone. We have also discussed the possibility of considering a radiofrequency ablation. Her case was discussed with Dr. Gonzalez who was in agreement. Highly complex medical issues were managed and discussed today. Plan.. Continue current medications.. Routine walking program.. Continue home blood pressure monitoring.. Echocardiogram.. Consider antiarrhythmic therapy.. Follow-up in 1 year (patient request)." Echo done 03/14/21- unremarkable with no significant change compared to 09/2016 per report. Amiodarone added 03/2021* Chart Review Chart Review: Acceptable Risk for Surgery and Patient seen in Pre Admission Testing Teaching & Discussion Pre-Anesthesia Teaching/Discussion Notes: Instructed NPO after midnight before surgery,except medications with 15 cc of water. Medication instructions provided according to the PAT guidelines. History Surgery Operation Date: 01/11/22 11:25 Proposed Procedures p Left Anterior Total Hip Arthroplasty - Alex Willams, Height/Weight Height: 5 ft 1 in Weight: 72 kg Allergies Allergy/AdvReac Type Severity Reaction Status Date / Time oxycodone Allergy Severe Throat Verified 12/10/21 10:12 closing Sulfa (Sulfonamide Allergy Severe Throat Verified 12/10/21 10:12 Antibiotics) closing Penicillins Allergy Mild Rash Verified 11/30/21 13:54 erythromycin base AdvReac Mild stomach Verified 11/30/21 13:54 cramps and diarrhea Medications Home Medications Medication Instructions Recorded Confirmed Last Taken metoprolol succinate 50 mg 25 mg PO HS 06/24/18 11/30/21 09/02/21 tablet,extended release 24 hr multivitamin (Multiple Vitamins 1 tab PO HS 06/24/18 11/30/21 09/02/21 tablet) aspirin 81 mg tablet 81 mg PO HS 03/07/21 11/30/21 09/01/21 amiodarone 200 mg tablet 100 mg PO QPM 08/16/21 11/30/21 09/02/21 atorvastatin 80 mg tablet 80 mg PO HS #90 tabs 10/19/21 11/30/21 Unknown losartan 25 mg tablet 25 mg PO HS #90 tabs 10/19/21 11/30/21 Unknown ezetimibe 10 mg tablet 10 mg PO HS 11/30/21 11/30/21 Unknown fenofibrate nanocrystallized 48 mg 48 mg PO HS 11/30/21 11/30/21 Unknown tablet omeprazole magnesium 10 mg oral 10 mg PO HS 11/30/21 11/30/21 Unknown suspension,delayed release Past Medical History Medical History Arthritis CAD (coronary artery disease) SUKHWINDER x1 to LAD (2011) Dyslipidemia GERD (gastroesophageal reflux disease) History of heart attack SUKHWINDER x1 to LAD (2011) History of prediabetes History of stomach ulcers HTN (hypertension) Hx of deep venous thrombosis Remote "many years ago" r/t OCP Hx of ovarian cyst Paroxysmal SVT (supraventricular tachycardia) Follows with [facility] cardio On Amiodarone Polymyalgia rheumatica No recent issues Primary hypertension Exercise / Class Metabolic Activity III < 4 Walking/Shop/Light housework (one FS (no CP, + SOB)) Past Family History Family History Father Myocardial infarction Mother Family history of diabetes mellitus Brother Family history of diabetes mellitus Aunt Family history of diabetes mellitus Grandmother (Maternal) Family history of diabetes mellitus Other No family history of adverse response to anesthesia Denies family history of Ovarian cancer Prostate cancer Breast cancer Lung cancer Colorectal cancer Cancer Past Surgical History Surgical History History of bilateral cataract extraction History of cardiac cath 2011 > SUKHWINDER x1 to LAD 2016 > no stents History of colonoscopy Colonoscopy (09/03/21): MAC at [facility] History of esophagogastroduodenoscopy (EGD) History of partial hysterectomy History of right oophorectomy History of tonsillectomy and adenoidectomy History of tooth extraction History of total hip arthroplasty RT Past Anesthesia History No Hx of Anesthesia Complications and No Family Hx of Anesthesia Complications History of PONV No Hx of PONV and No Hx of Motion Sickness Social History Smoking Status: Former smoker tobacco type: cigarettes Do You Dip or Chew Tobacco: No Smoking End Date: 1973 Hx Alcohol Use: Yes Alcohol type: wine alcohol intake frequency: a few times a week substance use type: does not use Review of Systems Patient denies chest pain, shortness of breath, fever, chills, cough, wheezing, palpitations. Physical Exam Vital Signs VITALS BP 119/67 P 52 TEMP 98.2 SP02 96%RA RESP 18 PHYSICAL Full cervical extension range of motion. Full TMJ range of motion. TMD 4 finger breaths Mallampati Score 1 Dentition: intact, + caps/crowns Lungs: clear throughout to auscultation Cardiac: regular rate and rhythm, no murmurs noted Spine: normal Carotid arteries: negative bruit Extremities: no edema Lab Results Anesthesia Preop Results Results Anesthesia Widget: WBC 9.20 K/ul (4.8-10.8) 12/12/21 Hgb 12.1 g/dl (12.0-16.0) 12/12/21 Hct 37.3 % (34.1-44.9) 12/12/21 Plt 209 K/uL (130-400) 12/12/21 Na 135 mmol/L (136-145) L 12/12/21 K 3.9 mmol/L (3.5-5.1) 12/12/21 Cl 102 mmol/L (98-107) 12/12/21 CO2 27 mmol/L (21-32) 12/12/21 BUN 14 mg/dl (6-23) 12/12/21 Creat 1.15 mg/dl (0.6-1.2) 12/12/21 Glucose Level 94 mg/dl (70-99(Fasting)) 12/12/21 PT 10.8 Seconds (9.0-12.0) 12/12/21 PTT 27.7 Seconds (21.0-31.0) 12/12/21 INR 1.0 (0.9-1.1) 12/12/21 Blood Type O Positive 12/12/21 Antibody Screen NEGATIVE 12/12/21 Testing Laboratory Results 04/10/21 HGBA1C 6.1% Electrocardiogram Date: 12/12/21 SB at 49bpm. Otherwise normal ECG. No significant change compared to 07/01/18 per storm door maker comparison. Chest X-Ray Date: 12/12/21 FINDINGS: Cardiomediastinal and hilar silhouettes are within normal limits. Atherosclerosis of the aorta. Mild hyperinflation with diaphragmatic flattening. No pneumothorax, pleural effusion, airspace consolidation or overt pulmonary edema. Degenerative changes of the shoulders and spine. IMPRESSION: No acute process. Echocardiogram Date: 03/14/21 EF 60-65%. No regional motion abnormality. Mild MR. Grade 1 diastolic dysfunction. Compared with study 10/01/2016, no significant change per report. Other Testing Event monitor (11/16-11/29/20) Baseline - sinus rhythm. "One brief run of atrial tachycardia" COVID-19 Risk Screen Screening Information COVID-19 Screen Date: 12/12/21 Exposure 21 Days Family/Household +COVID Last 21 Days: No Exposure 10 Days Any COVID Exposure Last 10 Days: No Symptoms Last 10 Days Experienced COVID Sx Last 10 Days: No + COVID 0-90 Days COVID + in Last 0-90 Days: No
--- NOTE | 2022-01-10 13:07 | History & Physical Report ---
Date of Service January 10, 2022 Assessment & Plan (1) Osteoarthritis of left hip: We will proceed with a left anterior total of arthroplasty. Postoperatively she will be started on aspirin for DVT prophylaxis and kept overnight in the hospital for postoperative medical management. She plans to use energy physical therapy upon discharge. History of Present Illness Chief Complaint: Osteoarthritis of the left hip. Primary Care Provider: Xuan Unger MD Brian is a pleasant 81-year-old female who I did a right hip replacement in the past. She has done well with that. Unfortunately, she is dealing with a lot of left hip and groin pain. X-rays and clinical examination have been diagnostic for advanced osteoarthritis of the left hip. After failing conservative treatment, she has elected to proceed with a left anterior total hip arthroplasty. . Allergies Allergy/AdvReac Type Severity Reaction Status Date / Time oxycodone Allergy Severe Throat Verified 12/10/21 10:12 closing Sulfa (Sulfonamide Allergy Severe Throat Verified 12/10/21 10:12 Antibiotics) closing Penicillins Allergy Mild Rash Verified 11/30/21 13:54 erythromycin base AdvReac Mild stomach Verified 11/30/21 13:54 cramps and diarrhea Home Medications Medication Instructions Recorded Confirmed Type metoprolol succinate 50 mg 25 mg PO HS 06/24/18 11/30/21 History tablet,extended release 24 hr multivitamin (Multiple Vitamins 1 tab PO HS 06/24/18 11/30/21 History tablet) aspirin 81 mg tablet 81 mg PO HS 03/07/21 11/30/21 History amiodarone 200 mg tablet 100 mg PO QPM 08/16/21 11/30/21 History atorvastatin 80 mg tablet 80 mg PO HS #90 tabs 10/19/21 11/30/21 Rx losartan 25 mg tablet 25 mg PO HS #90 tabs 10/19/21 11/30/21 Rx ezetimibe 10 mg tablet 10 mg PO HS 11/30/21 11/30/21 History fenofibrate nanocrystallized 48 mg 48 mg PO HS 11/30/21 11/30/21 History tablet omeprazole magnesium 10 mg oral 10 mg PO HS 11/30/21 11/30/21 History suspension,delayed release Past Med/Surg History Medical History Arthritis CAD (coronary artery disease) SUKHWINDER x1 to LAD (2011) Dyslipidemia GERD (gastroesophageal reflux disease) History of heart attack SUKHWINDER x1 to LAD (2011) History of prediabetes History of stomach ulcers HTN (hypertension) Hx of deep venous thrombosis Remote "many years ago" r/t OCP Hx of ovarian cyst Paroxysmal SVT (supraventricular tachycardia) Follows with [facility] cardio On Amiodarone Polymyalgia rheumatica No recent issues Primary hypertension Surgical History History of bilateral cataract extraction History of cardiac cath 2011 > SUKHWINDER x1 to LAD 2017 > no stents History of colonoscopy Colonoscopy (09/03/21): MAC at [facility] History of esophagogastroduodenoscopy (EGD) History of partial hysterectomy History of right oophorectomy History of tonsillectomy and adenoidectomy History of tooth extraction History of total hip arthroplasty RT Family History Father Myocardial infarction Mother Family history of diabetes mellitus Brother Family history of diabetes mellitus Aunt Family history of diabetes mellitus Grandmother (Maternal) Family history of diabetes mellitus Other No family history of adverse response to anesthesia Denies family history of Ovarian cancer Prostate cancer Breast cancer Lung cancer Colorectal cancer Cancer Social History Smoking Status: Former smoker Tobacco Type: Cigarettes Age Started Using Tobacco: 22; Age Quit Using Tobacco: 76; packs per day: 0.5; Years Smoked: 54; Second Hand Exposure: Yes (IN THE PAST); Hx Alcohol Use: Yes Alcohol type: wine Preferred Language: Slovenian Communication Ability: Effective Interpreter Deaf Required: No Beliefs That Will Affect Care: None Current Living Situation: Spouse Feels Safe at Home: Yes Assistive Devices: None Review of Systems All systems reviewed & are unremarkable except as noted in HPI & below. Physical Exam On physical examination of her left hip, she has pain with forced internal and external rotation. All of her pain is located in her groin.. Constitutional WD/WN, vitals as above Eyes PERRL, conjunctivae normal, anicteric sclerae ENMT external ear and nose normal, oropharynx normal Neck trachea midline, no thyromegaly Respiratory normal respiratory effort, lungs clear to auscultation Cardiovascular RRR, no murmur, no edema Gastrointestinal (Abdomen) normal bowel sounds, soft, nontender, no hepatosplenomegaly Skin no rashes, warm and dry Psychiatric A+Ox3, euthymic affect Results & Data Results & Data Laboratory Results . Diagnostic Findings X-rays of her left hip show advanced osteoarthritis with joint space narrowing, osteophyte formation, and [id number] articulation. PG Care Time/CCT Total # of Minutes Spent Total Time Spent with Patient: Total time spent is greater than 50% in coordination of care (as documented) at patient's floor/unit and/or counseling patient: Coding Level of Care Code None Diagnoses Osteoarthritis of left hip M16.12
[2022-01-11] MEDS ORDERED: ceFAZolin 1000MG 1,000 MG/7.5 ML SYR IV SCH (06:00)
[2022-01-11] MEDS ORDERED: TRANEXAMIC ACID 1,000 MG **IV Intra-op IV SCH (06:00)
[2022-01-11] MEDS ORDERED: LR 60ML/HR IV SCH (06:00)
[2022-01-11] MEDS ORDERED: GABAPENTIN 300 MG CAP PO SCH (06:00)
[2022-01-11] MEDS ORDERED: FAMOTIDINE 20 MG TAB PO SCH (06:00)
[2022-01-11] MEDS ORDERED: dexAMETHasone 4 MG TAB PO SCH (06:00)
[2022-01-11] MEDS ORDERED: LR 500ML BOLUS, THEN 15ML/HR IV SCH (06:00)
[2022-01-11] MEDS ORDERED: ORTHO JOINT MIX INFIL SCH (06:00)
[2022-01-11] MEDS ORDERED: TRANEXAMIC ACID 1,000 MG **IV Pre-op IV SCH (06:00)
[2022-01-11] MEDS ORDERED: ACETAMINOPHEN 500 MG TAB PO SCH (06:00)
[2022-01-11] MEDS ORDERED: BUPIVACAINE 0.5 % 5 MG/1 ML PF 10ML VIAL ONE (06:24)
[2022-01-11] MEDS ORDERED: ORTHO JOINT ANESTHETIC ONE (06:32)
[2022-01-11] MEDS ORDERED: fentaNYL citrate 100 MCG/2 ML VIAL ONE (06:36)
[2022-01-11] MEDS ORDERED: MIDAZOLAM HCL 1 MG/ML 2ML VIAL ONE (06:36)
--- NOTE | 2022-01-11 06:40 | History & Physical Bridge Note ---
Date of Service January 11, 2022 History & Physical Bridge Note I have examined the patient, reviewed the History & Physical and in the interval since the performance of the History & Physical I have noted the following changes of clinical significance: no changes noted
[2022-01-11] MEDS ORDERED: ePHEDrine sulfate 50 MG/ML AMP IV PRN (06:55)
[2022-01-11] MEDS ORDERED: fentaNYL citrate 100 MCG/2 ML VIAL IV PRN (06:55)
[2022-01-11] MEDS ORDERED: ATROPINE SULFATE 0.1 MG/ML 10ML SYR IV PRN (06:55)
[2022-01-11] MEDS ORDERED: ONDANSETRON INJ 2 MG/ML 2 ML VIAL IV PRN ×2 (06:55→10:32)
[2022-01-11] MEDS ORDERED: PROPOFOL IV EMULSION 10 MG/ML 20 ML VIAL IV ONE (07:23)
[2022-01-11] MEDS ORDERED: GLYCOPYRROLATE 0.2 MG/ML VIAL ONE (07:23)
[2022-01-11] MEDS ORDERED: ePHEDrine sulfate 50 MG/ML AMP ONE (07:23)
--- NOTE | 2022-01-11 08:06 | Operative Report ---
PG Post Operative Report Pre & Post Diagnosis Operation Date: 01/11/22 07:00 Pre-Op Diagnosis: Degenerative Joint Disease Left Hip Post-Op Diagnosis: Degenerative Joint Disease Left Hip I identified the patient and participated in the time-out.: Yes Procedure Operation Date: 01/11/22 07:00 Actual Procedures p Left Anterior Total Hip Arthroplasty, Uncemented(Left) - Alex Willams DO Surgeon Alex Willams DO Program Management Manager Alex Guzman PA-C Estimated Blood Loss 250 Findings Consistent with Post-Op Diagnosis Specimens Left femoral head Description of Procedure Implants used I used a ZimmerBiomet total hip arthroplasty system with a size 5 high offset Avenir Complete stem, a 50 mm G7 cup with a 25mm screw, an E1 polyethylene liner, a 36 mm ceramic head with a -3.5 neck. Brian arrived at the hospital for the above procedure. She was seen in the preoperative holding area and the operative extremity was identified and signed. She was given a spinal anesthetic, a preoperative antibiotic, and TXA. She was then taken back to the operating room and laid on the table in the supine position. She was given basic sedation. The operative leg was secured to a Puristst leg positioner. The hip was then prepped and draped in sterile fashion. A timeout was done and the patient and the operative extremity was properly identified. An anterior approach was used. Dissection was taken down through the fascia and the tensor muscle belly was retracted laterally and the rectus was retracted medially. The circumflex vessels were identified and ligated. The capsule was then incised and tagged for later repair. The femoral neck was then cut and the femoral head was removed. The acetabulum was exposed. Time was spent doing a complete circumferential labral release. Sequential reaming of the acetabulum up to a size 49 reamer was done. Final reamings were done under fluoroscopy to ensure appropriate version. A Biomet 50 mm G7 cup was then impacted into place. A single 25 mm screw was placed. The E1 polyethylene liner was then snapped into place. Surrounding soft tissues were then injected with 100 cc of an orthopedic pain control cocktail. The proximal femur was then exposed. Sequential broaching up to a size 5 broach was done. Off that broach a size 36 head with a -3.5 neck was trialed. The hip was reduced and fluoroscopic images showed anatomic alignment of the implants in acceptable length. The broach was removed. The final size 5 high offset Avenir Complete stem was then impacted into place. A ceramic 36 mm head with a -3.5 neck was then impacted onto the stem and the hip was reduced. Final fluoroscopic images showed anatomic alignment of the hip. The capsule was then closed with #1 Vicryl suture. A dilute betadyne lavage was then done for 3 minutes. The joint was then irrigated with normal saline solution. The fascia was closed with #1 PDS suture. Skin was closed with 2-0 Vicryl, kay, and a Silverlon dressing. She was then transferred to a hospital bed and taken to the post anesthesia care unit in stable condition. She tolerated the procedure well. Alex Guzman PA-C, was present for the entire procedure. He was critical for patient positioning, prepping, draping, retraction exposure, wound closure and application of sterile dressing. I attest to the content of the Intraoperative Record and any orders documented therein. Any exceptions are noted below.
--- NOTE | 2022-01-11 09:57 | Anesthesiology Progress Note ---
Date of Service January 11, 2022 Anesthesia Post Procedure Vital Signs Vital Signs: Temp Pulse Pulse Resp BP Pulse Ox O2 Del Method 01/11/22 09:55 54 L 13 109/64 96 Room Air 01/11/22 09:45 36.2 C L 56 L 16 110/60 95 Room Air 01/11/22 09:35 55 L 16 120/61 93 Room Air 01/11/22 09:25 56 L 12 119/58 L 93 Room Air 01/11/22 09:15 61 20 116/62 94 Room Air 01/11/22 09:05 60 16 115/59 L 92 Room Air 01/11/22 08:55 61 13 112/62 92 Room Air 01/11/22 08:45 63 16 111/60 95 Oxymask 01/11/22 08:35 63 17 104/60 99 Oxymask 01/11/22 08:28 36.2 C L 63 20 107/60 98 Oxymask 01/11/22 05:34 36.7 C 55 L 20 189/96 H 97 Room Air 01/11/22 05:34 Room Air O2 Flow Rate 01/11/22 09:55 01/11/22 09:45 01/11/22 09:35 01/11/22 09:25 01/11/22 09:15 01/11/22 09:05 01/11/22 08:55 01/11/22 08:45 6 01/11/22 08:35 6 01/11/22 08:28 6 01/11/22 05:34 01/11/22 05:34 Pain Intensity Left Hip: Pain Intensity: 0 Transfer of Care Handoff Completed per policy Notes Mental Status: alert / awake / arousable and participated in evaluation Patient Amnestic to Procedure: Yes Nausea / Vomiting: adequately controlled Pain: adequately controlled Airway Patency, RR, SpO2: stable & adequate BP & HR: stable & adequate Hydration State: stable & adequate Neuraxial Anesthesia: was administered and sensory block is resolving Anesthetic Complications: no major complications apparent and Pt Satisfied with anesthetic care
[2022-01-11] MEDS ORDERED: METOCLOPRAMIDE HCL INJ 5 MG/ML 2 ML VIAL IV PRN (10:32)
[2022-01-11] MEDS ORDERED: bisacodyL 10 MG SUPP PR PRN (10:32)
[2022-01-11] MEDS ORDERED: MAGNESIUM HYDROXIDE SUSP 30 ML UDC PO PRN (10:32)
[2022-01-11] MEDS ORDERED: oxyCODONE HCL IR 5 MG TAB (IMMEDIATE RELEASE) PO PRN (10:32)
[2022-01-11] MEDS ORDERED: NALOXONE HCL 0.4 MG/1 ML VIAL/CARP IV PRN (10:32)
[2022-01-11] MEDS ORDERED: HYDROmorphone INJ 0.5 MG/0.5 ML SYR IV PRN (10:32)
--- NOTE | 2022-01-11 10:40 | Fluoroscopy Report ---
FL hip LT 1V CLINICAL HISTORY: LT ANTERIOR TOTAL COMPARISON STUDY: None. FLUOROSCOPY TIME: 25 seconds. FINDINGS: A single fluoroscopic spot image of the left hip demonstrates a left total arthroplasty. Th e hardware is intact. No fracture or dislocation. IMPRESSION: Fluoroscopic assistance provided for left total hip arthroplasty. ACT 112: Negative or not required by law. Electronically signed by: Robin Pool M.D. 01/11/2022 10:39 AM
[2022-01-11] MEDS: SODIUM CHLORIDE 0.9% 1000ML 1,000 ML IV SCH ×2 (10:54→20:43)
--- NOTE | 2022-01-11 10:54 | XRay Report ---
AP PELVIS, CROSSTABLE LATERAL LEFT HIP History: Left total hip arthroplasty. Degenerative arthritis. Postop. FINDINGS: The patient is status post a left total hip arthroplasty. The hardware is intact. No fractu re or dislocation. Skin kay are in place. Evidence for prior right total hip arthroplasty. IMPRESSION: Left total hip arthroplasty. No evidence for hardware complication. ACT 112: Negative or not required by law. Electronically signed by: Robin Pool M.D. 01/11/2022 10:53 AM
[2022-01-11] MEDS: KETOROLAC TROMETHAMINE 15 MG/ML VIAL IV SCH ×3 (11:50→23:28)
[2022-01-11] MEDS: DOCUSATE SODIUM 100 MG CAP PO SCH ×2 (11:50→20:50)
[2022-01-11] MEDS: ASPIRIN 81 MG ECTAB PO SCH ×2 (12:27→20:51)
[2022-01-11] MEDS: MULTIVITAMIN TAB PO SCH (12:27)
[2022-01-11] MEDS: traMADol HCL 50 MG TABLET PO PRN ×3 (13:16→22:55)
[2022-01-11] MEDS: ACETAMINOPHEN 500 MG TAB PO SCH ×2 (13:16→20:51)
[2022-01-11] MEDS: ceFAZolin 2000MG 2,000 MG/15 ML SYR IV SCH ×2 (16:00→23:28)
[2022-01-11] MEDS ORDERED: ATORVASTATIN 40 MG TAB PO SCH (21:00)
[2022-01-11] MEDS ORDERED: SENNA 8.6 MG TAB PO SCH (21:00)
[2022-01-11] MEDS ORDERED: EZETIMIBE 10 MG TABLET PO SCH (21:00)
[2022-01-11] MEDS ORDERED: AMIODARONE 200 MG TAB PO SCH (21:00)
[2022-01-11] MEDS ORDERED: LOSARTAN POTASSIUM 25 MG TAB PO SCH (21:00)
[2022-01-11] MEDS ORDERED: METOPROLOL SUCC 25MG EXT REL TAB PO SCH (21:00)
[2022-01-12] MEDS: ACETAMINOPHEN 500 MG TAB PO SCH (05:48)
[2022-01-12] MEDS: KETOROLAC TROMETHAMINE 15 MG/ML VIAL IV SCH (05:48)
--- NOTE | 2022-01-12 07:24 | Orthopedic Progress Note ---
Date of Service January 12, 2022 Assessment & Plan (1) Status post left hip replacement: Overall she is doing fairly well. She is having much pain in the left hip. She is on aspirin for DVT prophylaxis. She will be seen by physical therapy today for ambulation and range of motion exercises. She can be discharged home later today. She will follow-up with orthopedics in 2 weeks. Erwin Torres was seen and examined at bedside this morning. Overall she is doing very well. She is not having much pain in the left hip. She has been up and ambulating to the bathroom. She has no complaints.. Review of Systems All systems reviewed & are unremarkable except as noted in HPI & below. Physical Exam On physical examination of the left hip, the dressing is clean and dry. Her leg is out full extension. She has active dorsiflexion plantarflexion of her left ankle.. Results & Data Results & Data Laboratory Results . Diagnostic Findings Postoperative x-rays of the left hip show the prosthesis to be in anatomic alignment without any evidence of fracture, desiccation, or loosening. PG Care Time/CCT Total # of Minutes Spent Total Time Spent with Patient: Total time spent is greater than 50% in coordination of care (as documented) at patient's floor/unit and/or counseling patient: Coding Level of Care Code 74573 Post Operative Follow-Up Diagnoses Status post left hip replacement Z96.642
--- NOTE | 2022-01-12 07:25 | Discharge Summary ---
Date of Service January 12, 2022 Admission HPI (Per Admitting) Brian is a pleasant 81-year-old female who I did a right hip replacement in the past. She has done well with that. Unfortunately, she is dealing with a lot of left hip and groin pain. X-rays and clinical examination have been diagnostic for advanced osteoarthritis of the left hip. After failing conservative treatment, she has elected to proceed with a left anterior total hip arthroplasty. . Admission Exam (Per Admitting) On physical examination of her left hip, she has pain with forced internal and external rotation. All of her pain is located in her groin.. Principal Diagnosis Same as "Discharge Diagnosis" noted below under Discharge Instructions. Discharge Exam On physical examination of the left hip, the dressing is clean and dry. Her leg is out full extension. She has active dorsiflexion plantarflexion of her left ankle.. Discharge Data Procedures Performed Operation Date: 01/11/22 07:00 Actual Procedures p Left Anterior Total Hip Arthroplasty, Uncemented(Left) - Alex Willams DO Ordered Studies 01/11/22 07:00 FL hip LT 1V Routine Hospital Course (1) Status post left hip replacement: On January 11, 2022 Jewel arrived at [facility] and underwent a left hip replacement without complication. She had a spinal anesthetic. Postoperatively she was started on aspirin for DVT prophylaxis and transferred to the general orthopedic floors. Her hospital course was uneventful. On postop day #1, her vital signs were stable and her pain was well controlled. She was able to participate well with physical therapy doing ambulation and range of motion exercises. She was then discharged home. She will follow-up with orthopedics in 2 weeks. PG Care Time/CCT Total # of Minutes Spent Total Time Spent with Patient: Total time spent is greater than 50% in coordination of care (as documented) at patient's floor/unit and/or counseling patient: Discharge Plan Discharge Items Patient Disposition: Home - Home Health Services Reason For Visit: POST SURGICAL CARE Discharge Diagnosis: Left hip replacement Activity: Per Instructions section Non-emergency contact: Surgeon Call non-emergency contact if: your wound has increased redness and your wound pain has increased Follow-up/Referrals: Xuan Unger MD [Primary Care Provider] - Diet: Regular Addtl Attending Provider Instructions: Activity and Therapy Recommendations: * If you are using [facility] then therapy will be provided at your home until they feel you have accomplished all of your goals. * If you are using [facility] then Physical Therapy will be provided until they feel you are ready to start Outpatient Physical Therapy. * If you are not using home therapy then Outpatient Physical Therapy should start about 3-5 days from your day of surgery. Therapy will last about 6-10 weeks * You were shown a series of exercises in the hospital. Do these exercises three times each day including the exercises you were shown in physical therapy. * Get up and walk several times each day.~ For the first four weeks, try not to stand or walk for more than one hour at a time. If you do stand or walk for more than one hour, you will not hurt anything, but your leg will likely swell.~~ * As you feel comfortable, you may change from the walker or crutches to a cane and~then to independent walking. Medications: * Narcotic You will likely be sent home from the hospital with a prescription for the narcotic pain medication that worked best throughout your stay. * Aspirin Most patients will be required to take Aspirin 81mg twice a day for 6 weeks after surgery. This is obtained [id number] and a prescription is not necessary. * Other medications may be prescribed for specific circumstances. If you have any questions, please call the office at . * Resume previous home medications unless otherwise instructed TEDs/Elastic Stockings: The white elastic stockings help limit swelling and prevent blood clots from forming in your legs. The more you wear them, the more they work. Wear them for six weeks. Dressing Care: Leave the Silverlon dressing in place for 7 days. After 7 days you may remove the dressing. If the incision is not draining then you may leave the kay open to air. If there is a little bit of drainage or if the kay are getting stuck on your clothing then cover the incision with a dry dressing. The kay will be removed at your 2 week follow-up appointment. Showering: You may shower with the Silverlon dressing in place. Do not let the shower spray hit the dressing directly. Pat the Silverlon dressing dry. If the dressing becomes wet underneath, then simply remove the dressing. Keep the incision dry until you are 7 days out from the day of surgery. After 7 days you may remove the Silverlon dressing and shower with the kay exposed. Let soapy water run over the kay and pat them dry. Do not scrub or soak the incision. Things To Watch For: * Drainage from the incision site that occurs more than one week after your surgery. * Increased redness at the incision site. * Fever above 102 degrees Fahrenheit. * Unusual chest pain or shortness of breath. * Call [facility] at with any of the above problems Follow-Up Visit: Follow-up with Dr. Willams's PA (Alex Guzman) 2-3 weeks after your day of surgery. He will remove your kay and answer any questions. If you have any additional questions or concerns, Dr Willams is usually in the office at the same time and will be available An appointment was probably scheduled when you signed-up for surgery in the office. If you have any questions call Office Instructions: More detailed instructions as well as Frequently Asked Questions were provided in a folder by our office when you signed-up for surgery. Please review these instructions when you get home. If you have any further questions or concerns, please feel free to call the office at [phone] Pending Studies at Discharge: No Stand-Alone Forms: My [facility] Medications and DC Order Prescriptions: New aspirin 81 mg Tablet,Delayed Release (Dr/Ec) 81 mg PO BID 42 Days Qty: 84 0RF tramadol 50 mg Tablet 50 mg PO Q4H PRN (Reason: pain) Qty: 30 0RF Continued amiodarone 200 mg tablet 100 mg PO QPM aspirin 81 mg tablet 81 mg PO HS atorvastatin 80 mg tablet 80 mg PO HS Qty: 90 3RF losartan 25 mg tablet 25 mg PO HS Qty: 90 3RF multivitamin [Multiple Vitamins] Tablet 1 tab PO HS metoprolol succinate 50 mg Tablet Extended Release 24 Hr 25 mg PO HS ezetimibe 10 mg tablet 10 mg PO HS fenofibrate nanocrystallized 48 mg tablet 48 mg PO HS omeprazole magnesium 10 mg susp,delayed release for recon 10 mg PO HS ascorbic acid (vitamin C) [Vitamin C] 1,000 mg Tablet 1 g PO DAILY Vitamin D3 100 mcg (4,000 unit) Capsule 100 mcg PO DAILY Discharge Orders: Discharge Order (Routine); Ordered 01/12/22 Ordered By: Alex Willams Admission Data Admit Date/Time: 01/11/22 08:29 Attending Provider: Alex Willams Admit Provider: Alex Willams Primary Care Provider: Xuan Unger
[2022-01-12] MEDS ORDERED: dexAMETHasone 4 MG TAB PO SCH (08:00)
[2022-01-12] MEDS: traMADol HCL 50 MG TABLET PO PRN (08:52)
[2022-01-12] MEDS: DOCUSATE SODIUM 100 MG CAP PO SCH (08:53)
[2022-01-12] MEDS: ASPIRIN 81 MG ECTAB PO SCH (08:53)
[2022-01-12] MEDS: MULTIVITAMIN TAB PO SCH (08:53)
== END 2022-01-12 12:01 | disposition home health service (06) ==
LOC: 3E 05:04 → ASU 05:04